=== PATIENT | male | born 1955 | race Caucasian/White ===

== ENCOUNTER 2017-10-07 22:59 | Inpatient (IN) | payer OTHER ==
[2017-10-08] MEDS ORDERED: Bisacodyl 10 MG SUPP PR PRN (02:11)
[2017-10-08] MEDS ORDERED: Dextrose 50% Abboject 50 ML SYRINGE SLOW IVP PRN (02:11)
[2017-10-08] MEDS ORDERED: Dextrose 5% in Water 1,000 ML IV SCH (02:11)
[2017-10-08] MEDS ORDERED: Ondansetron ODT 4 MG TAB PO PRN (02:11)
[2017-10-08] MEDS ORDERED: Sodium Chloride 0.9% 1,000 ML IV SCH (02:11)
[2017-10-08] MEDS ORDERED: Milk Of Magnesia 30 ML UDCUP PO PRN (02:11)
[2017-10-08] MEDS ORDERED: Fleet Enema 133 ML BOT PR PRN (02:11)
[2017-10-08] MEDS ORDERED: Insulin Regular 300 UNITS/3 ML VIAL SC PRN (02:11)
[2017-10-08] MEDS ORDERED: Ondansetron HCl/PF 4 MG/2 ML Vial IVP PRN (02:11)
[2017-10-08] MEDS: traMADol HCl 50 MG TAB PO PRN ×3 (03:13→19:57)
[2017-10-08 04:58] LABS: #Eosinphils 0.1 thou/uL (0.0-0.7); #Lymphocytes 1.3 thou/uL (1.20-3.40); #Monocytes 0.8 thou/uL (0.11-0.59); #Neutrophils 4.3 thou/uL (1.40-6.50); %Basophils 0.2 % (0.0-1.0); %Eosinophils 1.9 % (0.0-10.0); %Lymphocytes 19.7 % (21.0-51.0); %Monocytes 12.4 % (0.0-10.0); %Neutrophils 65.9 % (42.0-75.0); Hemoglobin 9.6 g/dL (14.0-18.0); Mean Corpuscular HGB CONC 31.1 g/dL (32.0-36.0); Mean Corpuscular Hemoglobin 26.8 pg (27.0-31.0); Mean Corpuscular Volume 86.4 fl (80.0-94.0); Mean Platelet Volume 9.4 fL (7.4-10.4); Platelet Count 138 thou/uL (130-400); RBC Distribution Width 15.6 % (11.5-14.5); Red Blood Cell (RBC) Count 3.59 mill/uL (4.70-6.10); White Blood Cell (WBC) Count 6.5 thou/uL (4.8-10.8)
[2017-10-08 05:01] LABS: Anion Gap 9 mmol/L (10-20); BUN (Urea Nitrogen) 28 mg/dL (8.4-25.7); Calc. Creatinine Clearance 225 mL/min (70-130); Calcium 8.5 mg/dL (7.8-10.44); Carbon Dioxide 32 mmol/L (23-31); Chloride 105 mmol/L (98-107); Estimated GFR-MDRD Greater than 90; Glucose 128 mg/dL (80-115); Magnesium 2.2 mg/dL (1.6-2.6); Phosphorus 3.6 mg/dL (2.3-4.7); Potassium 3.8 mmol/L (3.5-5.1); Sodium 142 mmol/L (136-145)
--- NOTE | 2017-10-08 07:51 | HP ---
Zach Melgoza PA-C, dictating for Dr. Slade Hagan. DATE OF SERVICE: 10/08/2017 CONSULTING PHYSICIAN: Dr. Solomon for Orthopedics. CHIEF COMPLAINT: Evaluation status post fall with subsequent hip fracture, transferred from [facility] ER. HISTORY OF PRESENT ILLNESS: This is a 62-year-old male who reported a fall while at work moving karime resses. He denied any LOC or striking his head or pain anywhere else other than localized into his k nee and hip. He was evaluated at a stand alone ER, which found he had a right hip fracture. He donavan ed any injury other than the right lower leg. Pulses were intact. No chest pain or shortness of kwabena ath was appreciated. PAST MEDICAL HISTORY: Included hypertension, congestive heart failure that was diagnosed in 2004, hy perlipidemia, diabetes, history of Mathew's palsy and diverticulitis. PAST SURGICAL HISTORY: Indicated for tonsillectomy. PAST PSYCHIATRIC HISTORY: He denies any psychiatric history. SOCIAL HISTORY: He is a former tobacco smoker, smoked greater than 10 years ago. Denies any alcohol use or denies any illicit drug use. He lives with his and he works at a [employer] store. REVIEW OF SYSTEMS: All 10 systems reviewed otherwise stated in HPI were negative. PHYSICAL EXAMINATION: VITAL SIGNS: Blood pressure 133/60, heart rate 78, respiratory rate of 18, temperature 98.9, 7/10 pa in, 96% on room air. GENERAL: In no acute distress at this time. He appears to be morbidly obese. HEENT: Atraumatic, normocephalic. No JVD, no masses. Trachea is midline. Pupils are equal, round, and reactive bilaterally. RESPIRATORY: Clear bilaterally via auscultation. CARDIOVASCULAR: S1, S2, regular rate and rhythm. ABDOMEN: Soft, nontender, nondistended, obese. BACK: Unremarkable. EXTREMITIES: Upper extremity, 5/5 strength, no tenderness or deformity. Lower extremity showed brui sing over the right knee, tenderness to that area as well as the right hip. Pulses are intact bilate rally DP and PT. NEUROLOGIC: GCS is 15. LABORATORY DATA: Laboratory findings are pending. RADIOLOGIC FINDINGS: Pending, otherwise stated in the stand [facility] ER report showing a right hip frac ture and right intertrochanteric fracture. ASSESSMENT: 1. Status post ground level fall. 2. Right hip fracture. 3. Acute traumatic pain. 4. History of hypertension. 5. History of diabetes. 6. History of congestive heart failure. PLAN: Plan will be to admit the patient to the surgical floor also has been already consulted. They advised the patient can eat. They will be obtaining further imaging studies tonight. We will discu ss for operative versus nonoperative management tomorrow in a.m. 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 We will consult Dr. Edwards for preoperative evaluation, and 2D echo has been ordered. We will optimize him medically for surger y, optimize his pain with p.o. and IV analgesics as necessary. Continuous KVO at this time. The pat ient may initiate a regular diet. We will initiate gastritis and DVT prophylaxis when appropriate. The patient has been discussed with Dr. Slade Hagan who agrees with the above plan.
--- NOTE | 2017-10-08 08:07 | CT ---
PRELIMINARY REPORT/[facility]/EMERGENCY AFTER HOURS PROCEDURE: EXAM: CT Pelvis Without Intravenous Contrast EXAM DATE/TIME: Exam ordered 10/08/2017 12:41 AM CLINICAL HISTORY: 62 years old, male; Injury or trauma; Fall; Initial encounter; Fracture of pelvis & hip; Right; Traum atic fracture; Acetabulum; Not specified; Patient HX: M62 reports fall with associated r hip FX. Pt r eports he was moving a mattress into client's vehicle when he tripped on the mattress and fell hard o nto r knee and reports "felt like leg jammed up into hip". Pt reports that he was able walk on leg bu t pain was great. Pt denies loc, neck pain, back pain, head pain, or pain anywhere else TECHNIQUE: Axial computed tomography images of the pelvis without intravenous contrast. Coronal and sagittal ref ormatted images were created and reviewed. COMPARISON: No relevant prior studies available. FINDINGS: Bones/joints: Acute comminuted fracture of the superior and posterior right acetabulum, mildly displa jian. No femur fracture. Severe osteoarthritis of the right hip. Less severe osteoarthritis of the lef t hip. No dislocation. Soft tissues: Incompletely visualized cellulitis of the lobe anterior abdominal wall pannus. Stomach and bowel: Colonic diverticulosis. No diverticulitis. No obstruction. Bladder: Unremarkable. No stones. Reproductive: Prostatomegaly. IMPRESSION: 1. Acute comminuted fracture of the superior and posterior right acetabulum, mildly displaced. 2. Incompletely visualized cellulitis of the lobe anterior abdominal wall pannus. Thank you for allowing us to participate in the care of your patient. Dictated and Authenticated by: John Ramos MD 10/08/2017 1:20 AM Central Time ([place] & [place]) FINAL REPORT CT PELVIS WITHOUT IV CONTRAST: Date: 10/08/17 FINDINGS/IMPRESSION: I agree with the preliminary report given by Dr. John Ramos of [facility]. POS: [facility]
--- NOTE | 2017-10-08 08:11 | RAD ---
AP PELVIS: Date: 10/08/17 HISTORY: Acetabular fracture. FINDINGS/IMPRESSION: There are severe degenerative changes in the hip joints, more prominent on the right. Right-sided eric tabular fracture is noted on the CT scan and not satisfactorily visualized on this study. POS: [facility]
--- NOTE | 2017-10-08 08:12 | RAD ---
RIGHT HIP 1 VIEW: Date: 10/08/17 HISTORY: Acetabular fracture. FINDINGS/IMPRESSION: The right acetabular fracture seen on the CT scan is less well visualized on this study. There are ma rked degenerative changes in the right hip joint. POS: [facility]
--- NOTE | 2017-10-08 08:18 | RAD ---
PORTABLE CHEST 1 VIEW: Date: 10/08/17 Time: 0603 hours HISTORY: Hip fracture, preoperative evaluation. FINDINGS: The heart size is normal. No confluent areas of consolidation, pneumothorax, or pleural effusions are seen. IMPRESSION: No acute process. POS: [facility]
[2017-10-08] MEDS: Docusate 100 MG CAP PO SCH ×2 (08:52→19:59)
--- NOTE | 2017-10-08 16:49 | PRG ---
DATE OF SERVICE: 10/08/2017 ATTENDING PHYSICIAN: Dr. Wai Manriquez. SUBJECTIVE: A 62-year-old male who had a ground level fall while at work moving a mattress last night. He was admitted to the hospital after a right hip fracture was identified. He has been stable on the surgical floor. Dr. Solomon, Orthopedics, has been consulted. OBJECTIVE: VITAL SIGNS: Temperature 98.0, pulse 72, respirations 24, O2 sat 95% on room air, blood pressure 165/74. GENERAL: Obese male lying in bed, in no acute distress. HEENT: Atraumatic, normocephalic. RESPIRATORY: Bilateral breath sounds clear. No respiratory distress. CARDIOVASCULAR: Regular rate and rhythm. Heart sounds normal. ABDOMEN: Obese, soft, nontender, nondistended. EXTREMITIES: Tenderness to the right hip and right upper leg. Extremities are otherwise neurovascularly intact. Cap refill brisk. NEUROLOGIC: GCS of 15. Alert and oriented x3. ASSESSMENT: 1. Status post ground level fall. 2. Right hip fracture. 3. Acute traumatic pain, improving. 4. History of hypertension, present on admission. 5. History of diabetes, present on admission. 6. History of congestive heart failure. PLAN: 1. Discussed at length with Dr. Solomon. This will be a delayed surgical repair of the hip. 2. Echo performed this morning. Dr. Edwards consulted. 3. Continue home medications. 4. Discontinue IV fluids. 5. Transition to p.o. pain medication, discontinue IV pain medication as tolerated. The patient was seen and examined with Dr. Carreno who agrees with this assessment and plan. [facility]
--- NOTE | 2017-10-08 19:30 | CON ---
DATE OF CONSULTATION: 10/08/2017 REASON FOR CONSULTATION: Preoperative evaluation. The patient's primary tax preparer Dr. Hunter Vogel. SUBJECTIVE: Mr. Adalid Maldonado is a very pleasant 62-year-old gentleman. He has history of nonisch emic cardiomyopathy, which fortunately later dramatically improved. The patient had an ejection fraction of 15-20% with normal coronary arteries in 2004. The patient la ter regained muscle function and the most recent ejection fraction was estimated to be approximately 50%. The patient has been doing well without complaints. He unfortunately did fall and then suffere d an injury to his hip and will need surgery at some point. PAST MEDICAL HISTORY: 1. Nonischemic cardiomyopathy, improved dramatically as outlined above. 2. Hypercholesterolemia. 3. Hypertension. 4. Previous smoking. 5. Bilateral edema likely venous insufficiency. The patient had reflux at the saphenous veins. MEDICATIONS PRIOR TO ADMISSION: Included, 1. Clonidine patch. 2. Aspirin. 3. Atorvastatin. 4. Benicar. 5. Coreg. 6 Furosemide. 7. Hydralazine 8. Metformin. 9. Terazosin. ALLERGIES: None known. SOCIAL HISTORY: No alcohol or tobacco. REVIEW OF SYSTEMS: Constitutional: No significant weight gain or loss. Vision: No changes. Heari ng: No changes. Pulmonary: No cough or wheezing. Gastrointestinal: No nausea, vomiting or diarrh ea. Skin: No rashes. Neurologic: No unilateral weakness or numbness. Psychiatric: No unusual de pression or anxiety. PHYSICAL EXAMINATION: GENERAL: This is a very pleasant gentleman in no distress. Feels well. VITAL SIGNS: Blood pressure 160/69, pulse 78 regular. HEENT: Sclerae nonicteric. Mouth mucous membranes moist. NECK: Supple, no lymphadenopathy. LUNGS: Clear, no wheezing, rales or rhonchi. CARDIAC: Normal S1, normal S2. There is no murmur, rub or gallop. ABDOMEN: Soft, nontender. EXTREMITIES: There is mild to moderate edema. Echocardiogram showed ejection fraction 50-55%. ASSESSMENT: 1. Nonischemic cardiomyopathy, resolved. 2. Hypertension. 3. Normal left ventricular function. PLAN: The patient should be a reasonable candidate to proceed with surgery when appropriate. Please let us know if we could be of any assistance. We will sign off at this point.
[2017-10-08] MEDS: hydrALAZINE 25 MG TAB PO SCH (19:58)
[2017-10-08] MEDS: Terazosin HCl 5 MG CAP PO SCH (19:58)
[2017-10-08] MEDS: Carvedilol 25 MG TAB PO SCH (19:59)
[2017-10-08] MEDS: Cyclobenzaprine 10 MG TAB PO PRN (20:06)
[2017-10-09] MEDS: Carvedilol 25 MG TAB PO SCH ×2 (08:45→22:34)
[2017-10-09] MEDS: metFORMIN 500 MG TAB PO SCH ×2 (08:45→17:05)
[2017-10-09] MEDS: hydrALAZINE 25 MG TAB PO SCH ×3 (08:46→22:33)
[2017-10-09] MEDS: Cyclobenzaprine 10 MG TAB PO PRN ×2 (08:46→17:05)
[2017-10-09] MEDS: Furosemide 40 MG TAB PO SCH (08:46)
[2017-10-09] MEDS: Docusate 100 MG CAP PO SCH ×2 (08:47→22:34)
[2017-10-09] MEDS: traMADol HCl 50 MG TAB PO PRN ×3 (08:47→22:33)
[2017-10-09] MEDS ORDERED: Aspirin 81 mg Enteric Coated Tablet PO SCH (09:00)
[2017-10-09] MEDS ORDERED: Enoxaparin Sodium 40 MG/0.4 ML SYRINGE SC SCH (09:00)
[2017-10-09] MEDS: Acetaminophen 500 MG TAB PO PRN (11:21)
--- NOTE | 2017-10-09 11:46 | PRG ---
DATE OF SERVICE: 10/09/2017 ATTENDING PHYSICIAN: Wai Manriquez DO SUBJECTIVE: Mr. Maldonado is a 62-year-old man who had a ground-level fall while at work moving a mattress 2 days ago. He was admitted to the hospital after right hip fracture was identified. He has been stable in the surgical floor. Dr. Solomon, Orthopedics, has recommended delayed operative treatment. An echocardiogram has been done and Dr. Edwards has been consulted. Per Dr. Edwards's note, the patient is a reasonable candidate to proceed with surgery when appropriate. Physical therapy has seen the patient this morning for mobilization. OBJECTIVE: VITAL SIGNS: Temperature 98.4, pulse 82, respirations 16, O2 sat 95% on room air, blood pressure is 178/74. CONSTITUTIONAL: Obese male sitting up in bed in no acute distress. HEENT: Atraumatic, normocephalic. RESPIRATORY: Bilateral breath sounds clear. No respiratory distress. CARDIOVASCULAR: Regular rate and rhythm. Heart sounds normal. ABDOMEN: Obese, soft, nontender, nondistended. EXTREMITIES: Tenderness to the right hip and right leg with movement. Extremities are otherwise neurovascularly intact. Cap refill is brisk. NEUROLOGIC: GCS 15. A and O x3. ASSESSMENT: 1. Status post ground-level fall. 2. Right hip fracture. 3. Acute traumatic pain, improving. 4. History of hypertension, present on admission. 5. History of diabetes, present on admission. 6. History of congestive heart failure. PLAN: 1. Plan for delayed operative treatment of hip fracture by Dr. Solomon. 2. Approved for surgery by Dr. Edwards. 3. Continue home medications. 4. Pain medication has been transitioned to oral medication only. 5. Await physical therapy recommendations for placement and/or outpatient therapy. The patient was reviewed with Dr. Manriquez who agreed with the assessment and plan. [facility]
--- NOTE | 2017-10-09 14:12 | CON ---
DATE OF CONSULTATION: 10/08/2017 REQUESTING PHYSICIAN: Dr. Slade Hagan. HISTORY OF PRESENT ILLNESS: Mr. Maldonado is a pleasant 62-year-old gentleman who was examined in his hospital bed for evaluation of a right hip injury. He reports that while at work, he was moving a m attress when he fell, landing on the point of his right knee, sustaining a compressive injury to the hip. He reports immediate right groin pain and difficulty in standing and inability to ambulate. Th ere was no loss of consciousness. He denies any other injuries except a small abrasion overlying the patella of the right knee. He was initially seen and evaluated at the [place] emergency room where plain x-rays were obtained fo llowed by a CT scan that showed a right posterior wall acetabular fracture with some extension into t he posterior column. I had the pleasure of speaking with the emergency room physician at [place] and we agreed in transferring patient to [facility] for orthopedic evaluation. Patient subsequently adm itted to the Trauma Service per protocol. PAST MEDICAL HISTORY: Remarkable for hypertension, congestive heart failure, hyperlipidemia, diabete s, history of Mathew's palsy. PAST SURGICAL HISTORY: Remarkable for tonsillectomy. SOCIAL HISTORY: The patient is a former cigarette smoker, although does not currently smoke. He den ies alcohol or illicit drug use. FAMILY HISTORY: Noncontributory. REVIEW OF SYSTEMS: Denies recent fevers, chills or sweats. Denies current chest pain or shortness o f breath. Denies numbness or tingling in the lower extremities. MEDICATIONS: Include carvedilol, clonidine, Lasix, hydralazine, metformin, medoxomil, terazosin, and aspirin 81 mg daily. ALLERGIES: None known. PHYSICAL EXAMINATION: VITAL SIGNS: Temperature 97.8, heart rate 79, respiratory rate 20, and blood pressure 138/71. HEENT: Atraumatic, normocephalic. HEART: Shows a regular rate and rhythm without murmur. LUNGS: Clear to auscultation bilaterally with good breath sounds. CHEST: Chest wall is nontender. PELVIS: Stable to compression, although with any manipulation of the right hip, he does feel pain in both lateral side of the hip as well as into the groin. EXTREMITIES: Bilateral upper extremities are atraumatic with normal subjective sensation. The left lower extremity is also atraumatic with normal sensation in the foot. The right lower extremity is r emarkable for pain with any type of log rolling and motion at the hip. He is found to have a femur t hat appears atraumatic and knee with just a small abrasion anteriorly, but no effusion and no evidenc e of laxity. Lower leg also is atraumatic as his knee, ankle and foot. He has intact subjective sen sation throughout the foot. X-RAYS: AP pelvis and Judet views were obtained in our emergency room that shows a posterior wall ac etabular fracture with mild displacement with no obvious complete fracture through the posterior colu mn. In addition to the acute fracture, he was found to have severe degenerative joint disease with b one on bone changes and osteophytes of both the acetabulum and femoral head. CT scan confirms the po sterior wall fracture with some extension towards the posterior column. LABORATORY DATA: White count of 6.5, hematocrit 31 and 138,000 platelets. ASSESSMENT: A 62-year-old gentleman status post ground level fall sustaining a posterior wall fractu re of his right acetabulum with preexisting severe degenerative joint disease of the hip. PLAN: At this time, the patient is admitted to the Trauma Service. I have discussed with patient tr eatment options for his hip. These options include but are not limited to benign neglect, with nonsu rgical management of the acetabulum. Another option is to proceed with nonsurgical management of the acetabulum followed by delayed total hip arthroplasty. Another option is to proceed with both open reduction internal fixation of the acetabulum and total hip arthroplasty. At this time, we are going to proceed with a nonsurgical management of the acetabular fracture and see how the patient does wit h physical therapy. If he tolerates therapy well, we will allow the fracture to heal conservatively and then anticipate proceeding with total hip arthroplasty. If the patient does not tolerate therapy at all, we may wish to consider doing an acute open reduction internal fixation with arthroplasty. Patient appears comfortable with our discussion and plan. We will be following gentleman while he is here in the hospital.
[2017-10-09] MEDS: Terazosin HCl 5 MG CAP PO SCH (22:33)
[2017-10-10] MEDS: hydrALAZINE 25 MG TAB PO SCH ×3 (08:12→21:15)
[2017-10-10] MEDS: Carvedilol 25 MG TAB PO SCH ×2 (08:12→21:20)
[2017-10-10] MEDS: metFORMIN 500 MG TAB PO SCH ×2 (08:12→17:07)
[2017-10-10] MEDS: Docusate 100 MG CAP PO SCH ×2 (08:12→21:23)
[2017-10-10] MEDS: Furosemide 40 MG TAB PO SCH (08:13)
[2017-10-10] MEDS ORDERED: CEFAZOLIN/Water 2 GM/20 ML SYRINGE SLOW IVP SCH (09:00)
[2017-10-10] MEDS: traMADol HCl 50 MG TAB PO PRN ×3 (11:11→23:09)
--- NOTE | 2017-10-10 11:35 | PRG ---
DATE OF SERVICE: 10/10/2017 ATTENDING PHYSICIAN: Wai Manriquez D.O. SUBJECTIVE: Mr. Maldonado is a 62-year-old man who had a ground level fall while at work moving mattr ess days ago. He was admitted to the hospital after right hip fracture was identified. He has been stable in the surgical floor. He has been seen by Dr. Edwards and cleared for surgery when appropriat e. Dr. Solomon was consulted and plans on taking the patient to the operating room tomorrow. Pain is well controlled on the floor and patient is tolerating regular diet. OBJECTIVE: VITAL SIGNS: Temperature 98.5, pulse 82, respirations 20, O2 sat 95% on room air, blood pressure 174 /72. CONSTITUTIONAL: Obese male sitting in bed in no acute distress. HEENT: Atraumatic, normocephalic. RESPIRATORY: Bilateral breath sounds clear. No respiratory distress. CARDIOVASCULAR: Regular rate and rhythm. Heart sounds normal. ABDOMEN: Soft, nontender, and nondistended. EXTREMITIES: Tenderness to right hip with movement. Neurovascularly intact. Cap refill brisk. NEUROLOGIC: GCS 15. A and O x3. ASSESSMENT: 1. Status post ground level fall. 2. Right hip fracture. 3. Acute traumatic pain, well controlled. 4. History of hypertension present on admission. 5. History of diabetes present on admission. 6. History of congestive heart failure. PLAN: 1. Patient will go to OR tomorrow with Dr. Solomon for right hip fracture repair. 2. N.p.o. after midnight, begin IV fluids and IV analgesia. 3. Continue home medications. 4. BP slightly elevated this morning. We will monitor and treat as appropriate. 5. Physical and occupational therapy after OR with orthopedic restrictions. 6. DVT prophylaxis after OR when cleared by Orthopedic Surgery. The patient was seen and examined with Dr. Manriquez who agrees with the assessment and plan.
[2017-10-10] MEDS: Terazosin HCl 5 MG CAP PO SCH (21:20)
--- NOTE | 2017-10-10 21:42 | RAD ---
RIGHT KNEE OUR VIEWS: History: Right knee injury. FINDINGS: There is mild tricompartmental joint space narrowing and moderate osteophytosis. Small amount of flui d extends the suprapatellar bursa. Soft tissue over the patella is significantly swollen. No acute fr acture, dislocation, or aggressive osseous erosions. There is irregularity of the cortex involving th e posterior proximal fibular shaft. IMPRESSION: 1. Prominent prepatellar soft tissue swelling. Cause is not evident. 2. Osteoarthritis with small joint effusion. 3. Cortical irregularity involving the posterior aspect of the proximal fibular shaft. Please conside r dedicated radiograph of the lower leg for complete evaluation of the fibula. MRI of the lower leg m ay also prove useful for better characterization. POS: [facility]
--- NOTE | 2017-10-10 21:44 | RAD ---
AP PELVIS ONE VIEW: History: Pelvic pain. FINDINGS: Sacral ala and pelvic rings are intact. There are prominent degenerative changes of each hip, right g reater than left. Cortical remottling of the right femoral head and neck is present in addition to lo ss of joint space and prominent osteophytosis and subchondral sclerosis. IMPRESSION: Prominent degenerative changes of the hips. POS: [facility]
[2017-10-10] MEDS: Cyclobenzaprine 10 MG TAB PO PRN (23:08)
--- NOTE | 2017-10-11 01:14 | PRG ---
DATE OF SERVICE: 10/10/2017 SUBJECTIVE: This is a 62-year-old gentleman status post mechanical fall. He was evaluated and found to have a right acetabular fracture. There are plans for operative intervention in the morning with Orthopedic Surgery. Upon my evaluation, the patient states he was working with physical therapy yest erday and earlier today and developed increasing pain in his right lower extremity. In particular, ileana michaels developed increasing pain above and below the right knee. OBJECTIVE: VITAL SIGNS: Reviewed and stable. GENERAL: The patient is resting in bed in no acute distress. LUNGS: Breathing is nonlabored. EXTREMITIES: Right knee is swollen and tender to palpation with limited range of motion secondary to pain. There is an abrasion with some scattered ecchymosis noted. ASSESSMENT AND PLAN: As documented in the daily progress note. Patient should be n.p.o. after midni ght. We will hold patient's home metformin given his n.p.o. status. X-ray of the right knee and re- x-ray of the pelvis per orthopedic surgery recommendations. Otherwise, continue care as order and co ntinued to monitor. To OR in a.m. with ortho.
[2017-10-11 05:05] LABS: Anion Gap 11 mmol/L (10-20); BUN (Urea Nitrogen) 21 mg/dL (8.4-25.7); Calc. Creatinine Clearance 255 mL/min (70-130); Calcium 8.9 mg/dL (7.8-10.44); Carbon Dioxide 30 mmol/L (23-31); Chloride 99 mmol/L (98-107); Estimated GFR-MDRD Greater than 90; Glucose 125 mg/dL (80-115); Magnesium 1.9 mg/dL (1.6-2.6); Phosphorus 3.4 mg/dL (2.3-4.7); Sodium 136 mmol/L (136-145)
[2017-10-11 05:28] LABS: Band 1 % (5-11); Eosinophils 2 % (0-10); Hemoglobin 10.4 g/dL (14.0-18.0); Lymphocytes 26 % (21-51); MDiff Complete? YES; Mean Corpuscular HGB CONC 31.1 g/dL (32.0-36.0); Mean Corpuscular Hemoglobin 26.7 pg (27.0-31.0); Mean Corpuscular Volume 85.8 fl (80.0-94.0); Monocytes 7 % (0-10); Neutrophil 64 % (42-75); PLT Morphology Comment Appears Adequate; Platelet Count 172 thou/uL (130-400); RBC Distribution Width 16.2 % (11.5-14.5); Red Blood Cell (RBC) Count 3.91 mill/uL (4.70-6.10); White Blood Cell (WBC) Count 7.8 thou/uL (4.8-10.8)
[2017-10-11] MEDS: Carvedilol 25 MG TAB PO SCH ×2 (06:19→20:28)
[2017-10-11] MEDS: Sodium Chloride 0.9% 1,000 ML IV SCH ×3 (07:38→18:44)
--- NOTE | 2017-10-11 08:29 | RAD ---
TWO VIEWS RIGHT TIBIA FIBULA: History: Status post fall. FINDINGS: AP and lateral views demonstrate some chronic periosteal changes in the proximal portion of the right fibula. Further workup using MRI may be consideration. The rest of the right tibia and fibula are un remarkable. No acute fractures or bony lesions seen. IMPRESSION: Proximal right fibular periosteal changes. POS: [facility]
[2017-10-11] MEDS ORDERED: CEFAZOLIN/Water 2 GM/20 ML SYRINGE ONE (08:54)
[2017-10-11] MEDS ORDERED: Fentanyl 100 MCG/2 ML VIAL ONE ×6 (09:10→14:31)
[2017-10-11] MEDS ORDERED: Midazolam HCl 2 mg/2 ml Vial ONE (09:36)
[2017-10-11] MEDS ORDERED: Rocuronium Bromide 50 MG/5 ML VIAL ONE ×2 (09:44→11:04)
[2017-10-11] MEDS: Docusate 100 MG CAP PO SCH ×2 (12:15→20:28)
[2017-10-11] MEDS: hydrALAZINE 25 MG TAB PO SCH ×3 (12:15→20:26)
[2017-10-11] MEDS: Furosemide 40 MG TAB PO SCH (12:15)
[2017-10-11] MEDS ORDERED: CEFAZOLIN/Water 2 GM/20 ML SYRINGE SLOW IVP SCH (13:30)
[2017-10-11] MEDS ORDERED: HYDROmorphone 0.5 MG/0.5 ML SYRINGE ONE ×2 (13:39→13:40)
[2017-10-11] MEDS ORDERED: Lidocaine 1% PF 5 ML VIAL ONE (15:51)
[2017-10-11] MEDS ORDERED: Succinylcholine Chloride 20 MG/ML 10 ml SYRINGE FS ONE (15:51)
[2017-10-11] MEDS ORDERED: Ondansetron HCl/PF 4 MG/2 ML Vial ONE (15:51)
[2017-10-11] MEDS ORDERED: Ketorolac Tromethamine 30 MG/ML VIAL ONE (15:51)
[2017-10-11] MEDS ORDERED: Propofol 200 MG/20 ML VIAL ONE (15:51)
[2017-10-11] MEDS ORDERED: PHENYLEPHRINE-NS 100 MCG/ML 10 ML SYRINGE ONE (15:51)
--- NOTE | 2017-10-11 16:02 | RAD ---
AP PELVIS: Two fluoroscopic views of the pelvis presented from the OR. Indication: Imaging during open reduction internal fixation of the pelvis. FINDINGS: These films demonstrate metallic plate and screws transfixing acetabulum. The side is not specified. POS: [facility]
--- NOTE | 2017-10-11 16:37 | RAD ---
AP PELVIS: History: Hip replacement. FINDINGS/IMPRESSION: Comparison is made with exam of 10-10-17. Interval post op changes of total right hip arthroplasty is seen in good position. There are post op changes of reduction and internal fixation of the right acetabular fracture better noted on the CT pe lvis of 10-08-17. There are degenerative changes in the left hip joint. POS: [facility]
--- NOTE | 2017-10-11 16:42 | RAD ---
PORTABLE CROSS TABLE LATERAL VIEW RIGHT HIP: Date: 10-11-17 History: Post-operative. FINDINGS: Compared to study 10-08-17. There has been interval post-surgical changes with right total hip prosthe sis noted in place. The acetabular component is not well seen. There is a malleable plate overlying t he region of the acetabulum, also incompletely imaged. Skin clips are seen lateral to the hip. IMPRESSION: Post-surgical changes related to recent placement of right total hip prosthesis. POS: [facility]
[2017-10-11] MEDS: CEFAZOLIN/Water 2 GM/20 ML SYRINGE SLOW IVP SCH (19:26)
[2017-10-11] MEDS: Ibuprofen 800 MG TAB PO SCH (19:26)
[2017-10-11] MEDS: Terazosin HCl 5 MG CAP PO SCH (20:27)
[2017-10-11] MEDS: Famotidine 20 MG TAB PO SCH (20:28)
--- NOTE | 2017-10-11 22:23 | PRG ---
DATE OF SERVICE: 10/11/2017 ATTENDING PHYSICIAN: Wai Manriquez D.O. 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 He was scheduled to be taken to the OR to day for open reduction internal fixation of his hip after initially opting for conservative managemen t. The patient was seen this afternoon postop as he was not on the floor during rounds this morning. He appears groggy, but is conversational and appropriately oriented. He voices pain in his right k nee, which he says is 7/10. Otherwise, he has no complaints. OBJECTIVE: VITAL SIGNS: BP 171/72, pulse 78, temperature 98.5, respirations 18, O2 sat 95% on room air. Note, these vital signs were collected at 4:00 a.m. Remainder of the examination was completed in the afte rnoon after the patient was postop. GENERAL: Obese, adult, middle-aged male, lying in bed, in no acute distress. HEENT: Normocephalic and atraumatic. RESPIRATORY: Breath sounds are clear to auscultation bilaterally with normal effort. The patient is on 2 L nasal cannula. CARDIOVASCULAR: Regular rate and rhythm. Normal S1 and S2. ABDOMEN: Soft, obese, but nontender. His bowel sounds are hypoactive. EXTREMITIES: His distal pulses are 1+ in the left lower extremity. Distal pulses not able to be johann reciated in the right lower extremity. He has significant pitting edema 2+ above the knee on his rig ht lower extremity. SCD compression is in place on the left lower extremity. No edema is present. His left lower extremity is warm to the touch. Cap refill was not able to be appreciated given nail thickening and discoloration. On his right lower extremity, his skin is significantly cooler to the touch. Again, cap refill not able to be appreciated given yellow thickened nails. SKIN: There is no cyanosis observed. His sensation is intact bilaterally in his lower extremities. NEUROLOGIC: His GCS is 15. He is alert and oriented x3. He has no focal deficits. LABORATORY DATA: Hematology: WBC 7.8, hemoglobin 10.4, hematocrit 33.6, platelets 172. Chemistry: Sodium 136, potassium 4.0, chloride 99, bicarbonate 30, BUN 21, creatinine 0.69, glucose 125, calciu m 8.9, phosphorus . RADIOGRAPHIC FINDINGS: A right hip x-ray, postsurgical changes related to recent placement of right total hip prosthesis. Pelvis x-ray: Interval postop changes to total right hip arthroplasty seen in good position. There are postop changes open reduction internal fixation of the right acetabular fr acture, better noted on the CT pelvis of 10/08/2017. There are degenerative changes in the left hip joint. Right knee x-ray from 10/10/2017, 1. Prominent prepatellar soft tissue swelling. Cause is not evident. 2. Osteoarthritis of small joint effusion. 3. Cortical irregularity involving the posterior aspect of the proximal fibular shaft. Please consi roni dedicated radiograph of the lower leg for complete evaluation of the fibula. MRI of the lower le g may also prove useful for better characterization. ASSESSMENT: 1. Status post ground level fall. 2. Right hip fracture. 3. Acute traumatic pain. 4. Right knee pain and swelling. 5. History of hypertension, present on admission. 6. History of diabetes, present on admission. 7. History of congestive heart failure, present on admission. PLAN: 1. We will continue to try and optimize the patient's pain control. Currently, the patient receivin g morphine, tramadol, and Tylenol. We will add ibuprofen 800 q.8 scheduled to see if this helps. 2. Right lower extremity ultrasound to rule out deep venous thrombosis. 3. PT and OT. Now, the patient is postop. Rehab consult as well. The patient was seen and examined with Dr. Wai Manriquez, who agrees with the assessment and plan.
[2017-10-11] MEDS: traMADol HCl 50 MG TAB PO PRN (23:57)
[2017-10-12] MEDS: CEFAZOLIN/Water 2 GM/20 ML SYRINGE SLOW IVP SCH (02:59)
[2017-10-12] MEDS: Ibuprofen 800 MG TAB PO SCH ×3 (03:01→20:28)
[2017-10-12] MEDS: Sodium Chloride 0.9% 1,000 ML IV SCH (03:01)
[2017-10-12] MEDS: traMADol HCl 50 MG TAB PO PRN ×2 (06:15→12:04)
--- NOTE | 2017-10-12 07:20 | OP ---
DATE OF SURGERY: 10/11/2017 PREOPERATIVE DIAGNOSIS: Right posterior column with associated posterior wall acetabular fracture wi th severe preexisting osteoarthritis of right hip. POSTOPERATIVE DIAGNOSIS: Right posterior column with associated posterior wall acetabular fracture w ith severe preexisting osteoarthritis of right hip. SURGICAL PROCEDURES: 1. Open reduction and internal fixation of right acetabulum posterior column. 2. Right total hip arthroplasty. ANESTHESIA: General. SURGEON: Darshan Solomon M.D. CHILD & ADOLESCENT PSYCHIATRIST: Perez Chavira M.D. and Raulito Shelton PA-C BLOOD LOSS: Approximately 250 mL. IMPLANTS: 1. Synthes 10-hole pelvis reconstruction plate with 3.5 mm cortical screws. 2. A DePuy total hip arthroplasty with a size 4 Arcade stem with high offset neck, a size 58 Pinnacl e cup and a +5 femoral head. COMPLICATIONS: None. DRAINS: None. SPECIMEN: None. INDICATIONS: Patient is a 62-year-old morbidly obese gentleman who sustained a ground level fall ont o his right knee with subsequent posterior column and posterior wall acetabular fracture. This fract ure was found to be mildly displaced at the posterior wall with essentially nondisplaced column fract ure line that was incomplete and this is based on CT scan preoperatively. After discussion with viv ent regarding surgical options, we have decided to proceed with acute open reduction and internal fix ation of the acetabular fracture followed by total hip arthroplasty given the severity of his preinju ry osteoarthritis. I have discussed with patient the risks and benefits of surgery. Risks include b ut are not limited to bleeding, infection, nerve injury, hip dislocation, infection, DVT, PE, loss of limb or life. Patient appears to understand and does wish to proceed. Consent has been obtained. PROCEDURE IN DETAIL: The patient was brought to the operating room and timeout performed followed by induction of general anesthesia. The patient was then positioned in a left lateral decubitus positi on on the Riky frame. Next, a sterile prep and drape was performed of the right lower extremity. A curvilinear incision was made centered over the greater trochanter. After the skin was sharply in cised, dissection was carried down through the subcutaneous fat, exposing the IT band and the gluteal fascia. This was incised in line with the skin incision and then a Charnley retractor placed in the wound. The trochanteric bursa was swept off of the short external rotators and then the abductors w ere elevated off the posterior capsule with an elevator. At this point, the piriformis, gemelli and bullet slug casting machine operator tendon could be identified. The piriformis was released from its attachment on the greater trochanter and tagged and reflected posteriorly. The gemelli and obturator were also released and ta gged and reflected posteriorly. The quadratus from [place] also released as was the most superior por tion of the gluteus jordi tendon. Once these structures were released and reflected posteriorly, lan lantigua sciatic nerve was palpated and felt to be protected. The dissection was then carried along the po sterior capsule onto the posterior wall with fracture identified. Subperiosteal dissection was then carried further proximally up along the ilium. The sciatic notch could be palpated and a sciatic ret ractor was placed in the notch with gentle posterior retraction. The dissection was then carried fur ther posteriorly to identify the ischium. At this point, it was opted to proceed with hip dislocatio n. This was done and the process further displaced the fracture as well as expected. An oscillating saw was then used to perform a femoral neck cut. The head was removed and sized on the back table. Next, attention was again placed back at the acetabular fracture. The posterior wall fragment was f urther displaced and a hematoma from the fracture gap was removed along with some interposed soft tis xin. The fracture was then reduced and could be confirmed both from the intra-articular view as well as the posterior view to be anatomically aligned. This was then provisionally held in place with K- wires. Next, a 10-hole pelvic reconstruction plate was contoured to fit from the issue flare up andre g the posterior column and posterior wall and up to the upper ileum. Once contoured it was held in p lace initially with 2 screws distally in the ischium and then the plate which was under contoured was pushed down against the ilium and held in place with three screws getting excellent compression andre g the posterior wall and securing the posterior column. At the completion of this, attention was the n placed at the total hip replacement portion of the procedure. Osteophytes from around the rim of lan lantigua acetabulum were excised using a combination of osteotome and rongeur and then reaming was performe d. Reaming was carried up to a size 57, which resulted in good rim fit, but still very sclerotic bon e; however, it was felt that the cup had been medialized adequately and as such, it was decided to st op further reaming at this size. Next, the 58 Silverthorne cup was inserted, taking care to be aware of both version and tilt. Once appropriately aligned and this was found to have very secure pressfit wi th no displacement of the acetabular fracture during the process of placing the cup. Given the poste rior wall component of this fracture, we did choose to place two screws through the cuff and this was done in standard fashion getting very secure purchase with these screws. Next, a 10 degree offset l iner was inserted into the cup. At this point, attention was placed at the proximal femur. He is fo und to have some posterior osteophytes along the neck from his severe arthritis. These were excised and then a box chisel was used to obtain a starting point for access in the intramedullary canal. A T-handled awl was then passed down the canal followed by a lateralizing reamer. Progressive T handle de were then passed; however, somewhere between a size 4 and 5, no further progress was made with T handle de as such, broaching was started at size 2 and could only be brought up to a size 4 bef ore there was complete fit and fill of the proximal femur. A trial reduction was then performed and showed good yazidism of length and good stability of the hip. The trial femoral component was the n removed and the wound thoroughly irrigated with Pulsavac, a total of three liters was used during t he course of the procedure. Next, the size 4 Silverthorne stem was inserted into the proximal femur. Th is was followed by insertion of a +5 femoral head and then reduction of the hip in the 90/90 position . The hip could be brought into internal rotation nearly 75 degrees before subluxation was appreciat ed. The hip overall was felt to be extremely stable and leg lengths were felt to be reasonably frederick red. As such, wound again irrigated with normal saline and then wound closure performed. The gemell i and obturator sleeve was reattached to the posterior trochanter using #2 Vicryl. This was followed by reattachment of the piriformis. There really was not a capsule to reapproximate in this case. T his was followed by reapproximation of the IT band and gluteal fascia using #2 Vicryl, 0 Vicryl was u sed for Rell's fascia followed by 2-0 Vicryl and roosevelt for the skin. A Xeroform gauze and tape d ressing was applied to the thigh and then patient was transferred to recovery room in stable [facility], [place]. There were no complications. Patient tolerated the procedure well.
--- NOTE | 2017-10-12 07:28 | EKG ---
Test Reason : PREOP Blood Pressure : / mmHG Vent. Rate : 074 BPM Atrial Rate : 074 BPM P-R Int : 188 ms QRS Dur : 168 ms QT Int : 458 ms P-R-T Axes : 051 -56 091 degrees QTc Int : 508 ms Normal sinus rhythm Left axis deviation Left ventricular hypertrophy with QRS widening and repolarization abnormality Abnormal ECG When compared with ECG of 06-FEB-2016 19:27, (Unconfirmed) (RBBB and left anterior fascicular block) is no longer Present Minimal criteria for Septal infarct are no longer Present Confirmed by DR. Deepti CHI ([id number]) on 10/12/2017 7:27:27 AM Referred By: GABRIELLA Confirmed By:DR. Deepti CHI
[2017-10-12 07:37] LABS: Mean Corpuscular HGB CONC 31.7 g/dL (32.0-36.0); Mean Corpuscular Hemoglobin 26.9 pg (27.0-31.0); Mean Corpuscular Volume 84.8 fl (80.0-94.0); Mean Platelet Volume 8.8 fL (7.4-10.4); Platelet Count 186 thou/uL (130-400); RBC Distribution Width 16.4 % (11.5-14.5); Red Blood Cell (RBC) Count 3.35 mill/uL (4.70-6.10); White Blood Cell (WBC) Count 10.9 thou/uL (4.8-10.8)
[2017-10-12 08:34] LABS: Band 21 % (5-11); Eosinophils 2 % (0-10); Lymphocytes 9 % (21-51); MDiff Complete? YES; Monocytes 10 % (0-10); Neutrophil 58 % (42-75); Ovalocytes MODERATE= 6-15 cells (100X) (0-1/hpf); Polychromasia SLIGHT = 2-3 cells (100X) (0-2/hpf)
[2017-10-12] MEDS: Cyclobenzaprine 10 MG TAB PO PRN (09:03)
[2017-10-12] MEDS: Famotidine 20 MG TAB PO SCH ×2 (09:03→20:29)
[2017-10-12] MEDS: Acetaminophen 500 MG TAB PO PRN (09:03)
[2017-10-12] MEDS: Docusate 100 MG CAP PO SCH ×2 (09:03→20:29)
[2017-10-12] MEDS: Furosemide 40 MG TAB PO SCH (09:03)
[2017-10-12] MEDS: Polyethylene Glycol 3350 17 GM Packet PO SCH (09:04)
[2017-10-12] MEDS ORDERED: Tamsulosin HCl 0.4 MG CAP PO SCH (10:15)
[2017-10-12] MEDS ORDERED: traMADol HCl 50 MG TAB PO SCH (12:00)
[2017-10-12] MEDS: Carvedilol 25 MG TAB PO SCH ×2 (13:14→20:29)
[2017-10-12] MEDS: hydrALAZINE 25 MG TAB PO SCH ×3 (13:15→20:30)
[2017-10-12] MEDS: Acetaminophen 500 MG TAB PO SCH ×2 (15:42→20:29)
--- NOTE | 2017-10-12 16:12 | PRG ---
DATE OF SERVICE: 10/12/2017 ATTENDING PHYSICIAN: Wai Manriquez D.O. SUBJECTIVE: The patient is a 62-year-old male with a right hip fracture who is now postop day #2. H xenia reports this morning that the pain in his knee which he had been complaining of significantly yeste rday has improved. He has had urinary retention requiring I&O catheterization overnight. The patien t takes terazosin at home for this. OBJECTIVE: VITAL SIGNS: BP 103/61, pulse 81, temperature 99.1, respirations 14, O2 sat 82% on room air. GENERAL APPEARANCE: Obese adult middle-aged male lying in bed in no acute distress. He has nasal ca nnula in place. HEENT: Normocephalic and atraumatic. RESPIRATORY: His breath sounds are clear to auscultation bilaterally with normal effort. The patien t is on 2 liters oxygen. CARDIOVASCULAR: He has regular rate and rhythm. No murmurs, gallops or rubs. ABDOMEN: Soft, obese, but nontender. His bowel sounds are normal. EXTREMITIES: He has 1+ distal pulses bilaterally in his lower extremities. A 2+ pitting edema to th e knee in the right lower extremity. NEUROLOGIC: His GCS is 15. He is alert and oriented x3. He has no focal deficits. LABORATORY DATA: Hematology: WBC 10.9, hemoglobin 9.0, hematocrit 28.4, platelets 186. Chemistry: Sodium 136, potassium 4.0, chloride 99, bicarbonate 30, BUN 21, creatinine 0.69, glucose 125, calciu m 8.9, phosphorus 3.4, and magnesium 1.9. There are no radiographs reviewed today. ASSESSMENT: 1. Status post fall ground level fall. 2. Right hip fracture. 3. Acute traumatic pain. 4. Right knee pain and swelling. 5. History of hypertension, present on admission. 6. History of diabetes, present on admission. 7. History of congestive heart failure, present on admission. PLAN: 1. We will reduce patient's tramadol to 50 p.r.n. and schedule ibuprofen and Tylenol in order to ach ieve adequate pain control with minimal cognitive disruption. 2. Patient to continue PT and OT. 3. We will place Enriquez catheter for urinary retention and add Flomax to his medications. This patient was seen and examined along with Dr. Wai Manriquez on rounds, who agree with the assessm ent and plan.
[2017-10-12] MEDS: Enoxaparin Sodium 40 MG/0.4 ML SYRINGE SC SCH (20:29)
[2017-10-12] MEDS: Terazosin HCl 5 MG CAP PO SCH (20:30)
[2017-10-13] MEDS: Acetaminophen 500 MG TAB PO SCH ×4 (03:59→20:39)
[2017-10-13] MEDS: Ibuprofen 800 MG TAB PO SCH ×3 (03:59→20:39)
[2017-10-13 05:55] LABS: Band 4 % (5-11); Eosinophils 3 % (0-10); Hemoglobin 8.9 g/dL (14.0-18.0); Lymphocytes 10 % (21-51); MDiff Complete? YES; Mean Corpuscular HGB CONC 30.8 g/dL (32.0-36.0); Mean Corpuscular Hemoglobin 26.9 pg (27.0-31.0); Mean Corpuscular Volume 87.4 fl (80.0-94.0); Mean Platelet Volume 9.4 fL (7.4-10.4); Monocytes 15 % (0-10); Neutrophil 68 % (42-75); Platelet Count 170 thou/uL (130-400); RBC Distribution Width 16.1 % (11.5-14.5); White Blood Cell (WBC) Count 9.3 thou/uL (4.8-10.8)
[2017-10-13] MEDS ORDERED: Bisacodyl 10 MG SUPP PR SCH (07:00)
[2017-10-13] MEDS: Docusate 100 MG CAP PO SCH ×2 (08:45→20:39)
[2017-10-13] MEDS: Polyethylene Glycol 3350 17 GM Packet PO SCH (08:45)
[2017-10-13] MEDS ORDERED: Hydrocortisone Sod Succ/PF 100 mg/2 ml Vial IVP SCH ×2 (08:45→09:00)
[2017-10-13] MEDS: Bisacodyl 10 MG SUPP PR SCH (08:46)
[2017-10-13] MEDS: Furosemide 40 MG TAB PO SCH (08:46)
[2017-10-13] MEDS: Tamsulosin HCl 0.4 MG CAP PO SCH (08:46)
[2017-10-13] MEDS: Famotidine 20 MG TAB PO SCH ×2 (08:46→20:39)
[2017-10-13] MEDS: traMADol HCl 50 MG TAB PO PRN ×2 (08:53→15:39)
[2017-10-13] MEDS: hydrALAZINE 25 MG TAB PO SCH ×3 (08:53→20:40)
[2017-10-13] MEDS: Carvedilol 25 MG TAB PO SCH ×2 (08:53→20:40)
[2017-10-13] MEDS: Cyclobenzaprine 10 MG TAB PO PRN (08:54)
[2017-10-13] MEDS: Hydrocortisone Sod Succ/PF 100 mg/2 ml Vial IVP SCH ×2 (14:27→21:40)
--- NOTE | 2017-10-13 15:42 | PRG ---
DATE OF SERVICE: 10/13/2017 ATTENDING PHYSICIAN: Dr. Wai Manriquez. SUBJECTIVE: The patient is a 62-year-old male with a right hip fracture, who is now postop day #3, s tatus post open reduction internal fixation. He has been requiring less oxygen overnight. He has a Enriquez in place for urinary retention. Patient was started on Flomax yesterday for this and he takes terazosin at home for this as well. The patient voices no complaints upon exam this morning. OBJECTIVE: VITAL SIGNS: BP 102/70, pulse 76, temperature 98.0, respirations 16, O2 sat 97% on room air. GENERAL APPEARANCE: Patient is an obese adult middle-aged male who appears his stated age, lying in bed with no acute distress. HEENT: Normocephalic and atraumatic. RESPIRATORY: His breath sounds are clear to auscultation bilaterally with normal effort. CARDIOVASCULAR: He has regular rate and rhythm. Normal S1 and S2. ABDOMEN: Soft, obese, and nontender. He has normal bowel sounds. EXTREMITIES: 1+ pulses bilaterally in lower extremities. 2+ pitting edema to the knee in the right lower extremity. NEUROLOGIC: His GCS is 15. This morning, he is alert and oriented x3 without focal deficits. LABORATORY DATA: WBC is 9.3, hemoglobin 8.9, hematocrit 28.8, platelets 170. Chemistry, serum corti jhonny 12.20. RADIOGRAPHIC FINDINGS: There were no radiographs reviewed today. ASSESSMENT: 1. Status post ground level fall. 2. Right hip fracture. 3. Acute traumatic pain. 4. Right knee pain and swelling. 5. History of hypertension, present on admission. 6. History of diabetes, present admission. 7. History of congestive heart failure, present on admission. PLAN: 1. Patient reports adequate pain control currently. We will continue pain control as ordered. 2. Patient to continue PT and OT. Rehab screen has been placed and since patient has a worker's com pensation, we are waiting on approval from worker's compensation. 3. Patient had 2 episodes of hypotension overnight, now with blood pressures in the 90s/50s. Serum cortisol was drawn, which was revealed to be 12.2. He was given 100 grams of hydrocortisone and star susan on 25 mg hydrocortisone q.8 hours. His blood pressure since normalized. This is likely due to s ome amount of adrenal insufficiency with a post-surgical stress. 4. Patient has Enriquez catheter x1 day. Flomax has been added to help improve urinary flow. We will likely discontinue Enriquez tomorrow. This patient was seen and examined along with Dr. Wai Manriquez on rounds and agrees with the assessm ent and plan.
[2017-10-13] MEDS: Enoxaparin Sodium 40 MG/0.4 ML SYRINGE SC SCH (20:40)
[2017-10-13] MEDS: Terazosin HCl 5 MG CAP PO SCH (20:40)
[2017-10-14] MEDS: Ibuprofen 800 MG TAB PO SCH ×3 (03:06→20:35)
[2017-10-14] MEDS: Acetaminophen 500 MG TAB PO SCH ×4 (03:06→20:35)
[2017-10-14] MEDS: Hydrocortisone Sod Succ/PF 100 mg/2 ml Vial IVP SCH ×3 (05:55→22:41)
[2017-10-14 07:01] LABS: Band 14 % (5-11); Eosinophils 2 % (0-10); Hemoglobin 8.1 g/dL (14.0-18.0); Lymphocytes 8 % (21-51); MDiff Complete? YES; Mean Corpuscular HGB CONC 30.6 g/dL (32.0-36.0); Mean Corpuscular Hemoglobin 26.2 pg (27.0-31.0); Mean Corpuscular Volume 85.6 fl (80.0-94.0); Mean Platelet Volume 9.3 fL (7.4-10.4); Monocytes 12 % (0-10); Neutrophil 61 % (42-75); Platelet Count 194 thou/uL (130-400); RBC Distribution Width 15.9 % (11.5-14.5); Red Blood Cell (RBC) Count 3.09 mill/uL (4.70-6.10); White Blood Cell (WBC) Count 10.3 thou/uL (4.8-10.8)
[2017-10-14] MEDS: Polyethylene Glycol 3350 17 GM Packet PO SCH (08:18)
[2017-10-14] MEDS: Furosemide 40 MG TAB PO SCH (08:19)
[2017-10-14] MEDS: Bisacodyl 10 MG SUPP PR SCH (08:19)
[2017-10-14] MEDS: Carvedilol 25 MG TAB PO SCH ×2 (08:20→20:38)
[2017-10-14] MEDS: Cyclobenzaprine 10 MG TAB PO PRN ×2 (08:20→22:51)
[2017-10-14] MEDS: Tamsulosin HCl 0.4 MG CAP PO SCH (08:20)
[2017-10-14] MEDS: Famotidine 20 MG TAB PO SCH ×2 (08:20→20:37)
[2017-10-14] MEDS: hydrALAZINE 25 MG TAB PO SCH ×3 (08:20→20:36)
[2017-10-14] MEDS: traMADol HCl 50 MG TAB PO PRN ×3 (08:21→22:44)
[2017-10-14] MEDS: Docusate 100 MG CAP PO SCH ×2 (08:21→20:37)
[2017-10-14] MEDS ORDERED: Sodium Chloride 0.9% 500 ML IV SCH (15:00)
--- NOTE | 2017-10-14 16:57 | PRG ---
DATE OF SERVICE: 10/14/2017 ATTENDING PHYSICIAN: Dr. Wai Manriquez. SUBJECTIVE: The patient is a 62-year-old man with a right hip fracture, is now postop day #4 status post open reduction internal fixation. He has been weaned off oxygen this morning as well as his Fol ey catheter has been removed. The patient reports that his pain is well controlled this morning and voices no other complaints. OBJECTIVE: VITAL SIGNS: Blood pressure 121/56, pulse 72, temperature 98.0, respirations 18. GENERAL: The patient is an obese adult male, appears stated age, in no acute distress. HEENT: Normocephalic and atraumatic. RESPIRATORY: Breath sounds are clear to auscultation bilaterally with normal effort. CARDIOVASCULAR: He has a regular rate and rhythm. Normal S1 and S2. ABDOMEN: Soft, obese, nontender. He has normal bowel sounds. EXTREMITIES: He has 1+ pulses bilaterally lower extremities. 2+ pitting edema to the knee in the ri ght lower extremity. Very minimal edema in his left lower extremity. NEUROLOGIC: GCS is 15 this morning. He is alert and oriented x3 without focal deficits. LABORATORY DATA: Hematology: WBC is 10.3, hemoglobin 8.1, hematocrit 26.5, platelets 194. Chemistr y significant for elevated glucose of 195 this morning. RADIOGRAPHIC FINDINGS: There are no images to review today. ASSESSMENT: 1. Status post ground level fall. 2. Right hip fracture. 3. Acute traumatic pain. 4. Right knee pain and swelling. 5. History of hypertension, present on admission. 6. History of diabetes, present on admission. 7. History of congestive heart failure present on admission. PLAN: The patient is approved for transfer to rehabilitation at [facility]. He has had a couple of intermittent episodes of hypotension when sitting in the chair. The patient's clinical exam support s that he is somewhat hypovolemic. He has been taking Lasix and has had little p.o. fluid intake. H e is also producing minimal urine, which is somewhat concentrated. We will give a fluid bolus and se e how his blood pressure responds to that. Otherwise, he is stable for discharge. Anticipate discha rging to rehab in the morning. This patient was seen and examined on rounds with Dr. Wai Manriquez who agrees with this assessment a nd plan.
[2017-10-14] MEDS: Enoxaparin Sodium 40 MG/0.4 ML SYRINGE SC SCH (20:34)
[2017-10-14] MEDS: Terazosin HCl 5 MG CAP PO SCH (20:35)
[2017-10-15] MEDS: Acetaminophen 500 MG TAB PO SCH ×3 (04:00→14:24)
[2017-10-15] MEDS: Ibuprofen 800 MG TAB PO SCH ×2 (04:00→13:03)
[2017-10-15 05:03] VITALS: BMI 45.2
[2017-10-15] MEDS: Hydrocortisone Sod Succ/PF 100 mg/2 ml Vial IVP SCH (06:31)
[2017-10-15] MEDS ORDERED: cloNIDine 0.3mg/24 Hour PATCH TD SCH (09:00)
[2017-10-15] MEDS: hydrALAZINE 25 MG TAB PO SCH ×2 (10:12→14:24)
[2017-10-15] MEDS: Famotidine 20 MG TAB PO SCH (10:13)
[2017-10-15] MEDS: Tamsulosin HCl 0.4 MG CAP PO SCH (10:13)
[2017-10-15] MEDS: Carvedilol 25 MG TAB PO SCH (10:13)
[2017-10-15] MEDS: Docusate 100 MG CAP PO SCH (10:14)
[2017-10-15] MEDS: Furosemide 40 MG TAB PO SCH (10:14)
[2017-10-15] MEDS: Polyethylene Glycol 3350 17 GM Packet PO SCH (10:15)
[2017-10-15] MEDS: Bisacodyl 10 MG SUPP PR SCH (10:15)
[2017-10-15 12:40] VITALS: TEMP 98.2
--- NOTE | 2017-10-15 13:00 | DIS ---
DATE OF ADMISSION: 10/08/2017 DATE OF DISCHARGE: 10/15/2017 ADMITTING PHYSICIAN: Dr. Slade Hagan. DISCHARGING PHYSICIAN: Dr. Guaman. CHIEF COMPLAINT: Right hip fracture. 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 He had no loss of consciousness or head injury. He was evaluated at [facility], found to have a right hip fracture and transferred to [place] for surgical fixation of his rig ht hip. The patient had a preoperative evaluation by Dr. Edwards. Given that the patient had a histo ry of nonischemic cardiomyopathy with an ejection fraction reportedly of 15% to 20%. This had subseq uently improved and he was judged to be an appropriate candidate for surgery from a cardiac point of view. Dr. Darshan Solomon from Orthopedics was consulted. Initially, the recommendation was for de layed surgery with possibility of not doing surgery at all. However, it was eventually decided to go for open reduction internal fixation, which was done on 10/11/2017. The patient was thereafter lundberg sferred to the surgical floor for pain management and supportive care measures as needed. The patisammy t had a couple of episodes of hypotension while on the floor. Serum cortisol was drawn and the bernard nt was started on hydrocortisone, after which his blood pressure normalized. He had one further subs equent episode, which was deemed to be due to hypovolemia. The patient was given 500 mL bolus of nor mal saline and his blood pressure normalized after that and remained normal throughout the rest of hi s stay. He was discharged in good condition on 10/15/2017 to rehabilitation. DISCHARGE MEDICATIONS: The patient was discharged to rehab with all of his inpatient medications. Rhonda talamantes see the electronic medical record for details. ACTIVITY INSTRUCTIONS: The patient is discharged with orthopedic limitations including weightbearing as tolerated with 25% on the right lower extremity. NOURISHMENT INSTRUCTIONS: The patient discharged on a regular diet. THERAPY INSTRUCTIONS. The patient to receive occupational, physical therapy, and rehabilitation. FOLLOWUP INSTRUCTIONS: The patient is to follow up with his primary care provider, Dr. Mario Alberto Lozoya in 10-14 days. The patient also instructed to follow up with Dr. Darshan Solomon in 10-[address] mcginnis removed in rehabilitation in 14 days. This patient was discussed over the phone with Dr. Wai Manriquez, who agrees with the assessment and plan.
[2017-10-15 14:26] VITALS: BP 131/65
== END 2017-10-15 14:50 | DRG 470 ==
LOC: ERS 22:59 → SURG A 10-08 00:30
PROVIDERS: ADMIT Specialist; ATTEND Specialist
PROC: 0QS404Z Reposition Right Acetabulum with Internal Fixation Device, Open Approach (ICD-10-PCS; principal; 2017-10-11)
PROC: 0SR90JA Replacement of Right Hip Joint with Synthetic Substitute, Uncemented, Open Approach (ICD-10-PCS; 2017-10-11)
DX: S32.441A Displaced fracture of posterior column [ilioischial] of right acetabulum, initial encounter for closed fracture (principal); I42.9 Cardiomyopathy, unspecified; Z68.42 Body mass index [BMI] 45.0-49.9, adult; I11.0 Hypertensive heart disease with heart failure; I50.9 Heart failure, unspecified; G89.11 Acute pain due to trauma; M16.11 Unilateral primary osteoarthritis, right hip; E78.5 Hyperlipidemia, unspecified; E11.9 Type 2 diabetes mellitus without complications; R33.9 Retention of urine, unspecified; E66.9 Obesity, unspecified; Z87.891 Personal history of nicotine dependence; Z79.84 Long term (current) use of oral hypoglycemic drugs; W18.39XA Other fall on same level, initial encounter; Y93.89 Activity, other specified; Y92.89 Other specified places as the place of occurrence of the external cause; Y99.0 Civilian activity done for income or pay
CPT/HCPCS: 36415; 36416; 71045; 72170; 72190; 72192; 76001; 80048; 82533; 83735; 84100; 85025; 86850; 86900; 86901; 90471; 90732; 93005; 93010; 93306; 96374; C1713; C1776; G0009; G0390; G8978-GP-CL; G8978-GP-CM; G8979-GP-CJ; G8979-GP-CL; G8987-GO-CM; G8988-GO-CK; J1170; J1650; J1720; J1815; J1885; J2001; J2250; J2270; J2405; J2704; J3010

== ENCOUNTER 2017-12-22 08:53 | Outpatient (CLI) | payer OTHER ==
--- NOTE | 2017-12-22 10:29 | HP ---
DATE OF SERVICE: 12/22/2017 HISTORY OF PRESENT ILLNESS: Mr. Adalid Maldonado is a very pleasant 62-year-old gentleman who pr esents to the Wound Center for evaluation of an ulceration of the right knee. The patient states mike t he fell on concrete at work on 10/07/2017. He states that on 10/11/2017, he underwent ORIF of the right acetabulum posterior column in conjunction with right total hip arthroplasty. The patient stat es that 1 month later, a wound of the right knee was debrided by Dr. Solomon. The patient states th at at this time, he was placed on wet to dry dressing changes for 2 weeks. The patient states that ileana michaels was seen by Dr. Solomon 1 week ago and at this time referred to the Wound Center for further evalu ation and treatment. PAST MEDICAL HISTORY: 1. Hypertension. 2. Nonischemic cardiomyopathy. 3. History of Mathew's palsy. 4. Diabetes mellitus. PAST SURGICAL HISTORY: 1. Tonsillectomy. 2. Open reduction and internal fixation of right acetabulum posterior column and right total hip art hroplasty on 10/11/2017. MEDICATIONS: 1. Benicar. 2. Atorvastatin. 3. Coreg. 4. Hydralazine. 5. Lasix. 6. Terazosin. 7. Aspirin 81 mg. 8. Multivitamin. 9. Vitamin C. 10. Tramadol p.r.n. ALLERGIES: No known diagnosed allergies. SOCIAL HISTORY: Significant for tobacco use of 2 packs of cigarettes per day for 10 years. The [facility] ent states that he stopped smoking in 1983. The patient admits to the social consumption of alcohol. FAMILY HISTORY: Significant for diabetes mellitus. The patient states that his father and one sibli ng were diagnosed with diabetes mellitus. Family history is negative for coronary artery disease. PHYSICAL EXAMINATION: VITAL SIGNS: Temperature 97.9, pulse 62, respirations 18, blood pressure 152/67. Accu-Chek 172. GENERAL: A 62-year-old gentleman sitting in examination room in no acute distress. HEENT: Normocephalic, atraumatic. NECK: No nuchal rigidity. CHEST: Clear to auscultation. CARDIAC: Regular rate and rhythm. ABDOMEN: Soft. EXTREMITIES: An ulceration of the right knee is present which measures approximately 1.4 x 1.3 cm. Granulation tissue is present within the wound margins. No purulent drainage is associated with the wound. No erythema of the skin surrounding the wound is present. No maceration of the skin of the p eriwound is noted. ASSESSMENT AND PLAN: 1. Ulceration of right anterior knee as described above. Dressing changes of Medihoney gauze and Me pilex border will be initiated today. These dressing changes are to be performed on a daily basis af ter cleansing and irrigation. No antibiotics will be prescribed today based upon the appearance of t he wound. I will see Mr. Maldonado again in 1 week. 2. Hypertension. 3. Diabetes mellitus. The patient's Accu-Chek in clinic today is 172. The patient has been told th at for optimal wound healing, his blood glucoses should remain below 150. 4. Nonischemic cardiomyopathy. 5. History of Mathew's palsy.
== END 2017-12-22 08:54 | disposition home or self-care (01) ==
LOC: WCC 08:53
PROVIDERS: ATTEND Family Medicine
DX: E11.622 Type 2 diabetes mellitus with other skin ulcer (principal); L97.819 Non-pressure chronic ulcer of other part of right lower leg with unspecified severity; I11.9 Hypertensive heart disease without heart failure; I42.9 Cardiomyopathy, unspecified; Z86.69 Personal history of other diseases of the nervous system and sense organs
CPT/HCPCS: 36416; 97602; 99203; G0463

== ENCOUNTER 2017-12-28 08:45 | Outpatient (CLI) | payer OTHER ==
--- NOTE | 2017-12-28 09:39 | PRG ---
DATE OF SERVICE: 12/28/2017 HISTORY: Mr. Adalid Maldonado is a very pleasant 62-year-old gentleman who presents to the Wound C enter for evaluation of an ulceration of the right knee. The patient previously stated that he fell on concrete at work on 10/07/2017. He stated that on 10/11/2017 he underwent ORIF of the right aceta bulum posterior column in conjunction with right total hip arthroplasty. The patient stated that one month later, a wound of the right knee was debrided by Dr. Solomon. The patient stated that at thi s time, he was placed on wet to dry dressing changes for 2 weeks. The patient stated that he was see n by Dr. Solomon one week prior to his initial presentation to the Wound Center. At this time, the patient was referred to the Wound Center for further evaluation and treatment. After being seen in [facility], the patient was placed on dressing changes of Medihoney gauze and Mepilex border. [facility] patient states he has been performing these dressing changes as prescribed. PHYSICAL EXAMINATION: VITAL SIGNS: Temperature 97.6, pulse 65, respirations 18, blood pressure 156/71. Accu-Chek 149. EXTREMITIES: An ulceration of the right knee is present which measures approximately 1.0 x 1.0 cm. Granulation tissue is present within the wound margins. No purulent drainage is associated with the wound. No erythema of the skin surrounding the wound is present. No maceration of the skin of the p eriwound is noted. ASSESSMENT AND PLAN: 1. Ulceration of right anterior knee as described above. Dressing changes of Medihoney gauze and olivia rdered gauze are to be performed on a daily basis after cleansing and irrigation. Arrangements will be made for the home delivery of dressing supplies. I will see Mr. Maldonado again in one week. 2. Hypertension. 3. Diabetes mellitus. The patient's Accu-Chek in clinic today is 149. The patient has been reminde d that for optimal wound healing, his blood glucoses should remain below 150. 4. Nonischemic cardiomyopathy. 5. History of Mathew's palsy.
== END 2017-12-28 08:46 | disposition home or self-care (01) ==
LOC: WCC 08:45
PROVIDERS: ATTEND Family Medicine
DX: E11.622 Type 2 diabetes mellitus with other skin ulcer (principal); L97.819 Non-pressure chronic ulcer of other part of right lower leg with unspecified severity; I10 Essential (primary) hypertension; I42.9 Cardiomyopathy, unspecified; Z86.69 Personal history of other diseases of the nervous system and sense organs
CPT/HCPCS: 36416; 97602

== ENCOUNTER 2018-01-04 08:34 | Outpatient (CLI) | payer OTHER ==
--- NOTE | 2018-01-04 09:38 | PRG ---
DATE OF SERVICE: 01/04/2018 HISTORY: Mr. Adalid Maldonado is a very pleasant 62-year-old gentleman who presents to the Wound C enter for evaluation of an ulceration of the right knee. The patient previously stated that he fell on concrete at work on 10/07/2017. He stated that on 10/11/2017, he underwent ORIF of the right acet abulum posterior column in conjunction with right total hip arthroplasty. The patient stated that on e month later, a wound of the right knee was debrided by Dr. Solomon. The patient stated that at th is time he was placed on wet to dry dressing changes for 2 weeks. The patient stated that he was see n by Dr. Solomon one week prior to his initial presentation to the Wound Center. At this time, the patient was referred to the Wound Center for further evaluation and treatment. After being seen in [facility], the patient was placed on dressing changes of Medihoney, gauze, and Mepilex border. The patient states he has been performing dressing changes of Medihoney on a daily basis after clean sing and irrigation. PHYSICAL EXAMINATION: VITAL SIGNS: Temperature 97.7, pulse 65, respirations 20, blood pressure 133/64. Accu-Chek 163. EXTREMITIES: An ulceration of the right knee is present which measures approximately 1.2 x 1.2 cm. Granulation tissue is present within the wound margins. No purulent drainage is associated with the wound. No erythema of the skin surrounding the wound is present. No maceration of the skin of the p eriwound is noted. ASSESSMENT AND PLAN: 1. Ulceration of right anterior knee as described above. Dressing changes of Medihoney, gauze and b ordered gauze will be continued on a daily basis after cleansing and irrigation. Arrangements were p reviously made for the home delivery of dressing supplies. The patient has a followup appointment wi Dr. Solomon in 2 weeks. I will see Mr. Maldonado again in 3 weeks. 2. Hypertension. 3. Diabetes mellitus. The patient's Accu-Chek in clinic today is 163. The patient has been reminde d that for optimal wound healing, his blood glucoses should remain below 150. 4. Nonischemic cardiomyopathy. 5. History of Mathew's palsy.
== END 2018-01-04 08:35 | disposition home or self-care (01) ==
LOC: WCC 08:34
PROVIDERS: ATTEND Family Medicine
DX: L97.819 Non-pressure chronic ulcer of other part of right lower leg with unspecified severity (principal); E11.9 Type 2 diabetes mellitus without complications; I10 Essential (primary) hypertension; I42.8 Other cardiomyopathies; Z86.69 Personal history of other diseases of the nervous system and sense organs
CPT/HCPCS: 36416; 97602

== ENCOUNTER 2018-01-25 08:57 | Outpatient (CLI) | payer OTHER ==
--- NOTE | 2018-01-25 10:19 | PRG ---
DATE OF SERVICE: 01/25/2018 HISTORY: Mr. Adalid Maldonado is a very pleasant 63-year-old gentleman who presents to the Wound C enter for evaluation of an ulceration of the right knee. The patient previously stated that he fell on concrete at work on 10/07/2017. He stated that on 10/11/2017, he underwent ORIF of the right acet abulum posterior column in conjunction with right total hip arthroplasty. The patient stated that on e month later, a wound of the right knee was debrided by Dr. Solomon. The patient stated that at th is time, he was placed on wet to dry dressing changes for 2 weeks. The patient stated that he was se en by Dr. Solomon one week prior to his initial presentation to the Wound Center. At this time, the patient was referred to the Wound Center for further evaluation and treatment. After being seen in the Wound Center, the patient was placed on dressing changes of Medihoney gauze and Mepilex border. The patient states that he has been performing dressing changes of Medihoney on a daily basis after c leansing and irrigation. PHYSICAL EXAMINATION: VITAL SIGNS: Temperature 97.6, pulse 62, respirations 18, blood pressure 128/60. Accu-Chek 197. EXTREMITIES: An ulceration of the right knee is present which measures approximately 0.6 x 0.5 cm. The dimensions of the wound at the time of the patient's visit on 01/04/2018 were approximately 1.2 x 1.2 cm. Granulation tissue is present within the wound margins. No purulent drainage is associated with the wound. No erythema of the skin surrounding the wound is present. No maceration of the ski n of the periwound is noted. ASSESSMENT AND PLAN: 1. Ulceration of right anterior knee as described above. Dressing changes of Medihoney gauze and olivia rdered gauze will be continued on a daily basis after cleansing and irrigation. The patient has a fo llowup appointment with Dr. Solomon in 1 week. I will see Mr. Maldonado again in 3 weeks if the woun d is still present at this time. 2. Hypertension. 3. Diabetes mellitus. The patient's Accu-Chek in clinic today is 197. The patient has been reminde d that for optimal wound healing, his blood glucoses should remain below 150. 4. Nonischemic cardiomyopathy. 5. History of Mathew's palsy.
[2018-01-25] MEDS ORDERED: Sodium Chloride 0.9% 15 ML NEB ONE (14:31)
== END 2018-01-25 08:58 | disposition home or self-care (01) ==
LOC: WCC 08:57
PROVIDERS: ATTEND Family Medicine
DX: E11.622 Type 2 diabetes mellitus with other skin ulcer (principal); L97.819 Non-pressure chronic ulcer of other part of right lower leg with unspecified severity; I10 Essential (primary) hypertension; I42.9 Cardiomyopathy, unspecified; Z86.69 Personal history of other diseases of the nervous system and sense organs
CPT/HCPCS: 36416; 97602; A4218

== ENCOUNTER 2018-02-16 10:12 | Outpatient (CLI) | payer OTHER ==
--- NOTE | 2018-02-16 10:58 | PRG ---
DATE OF SERVICE: 02/16/2018 HISTORY: Mr. Adalid Maldonado is a very pleasant 63-year-old gentleman who presents to the Wound C enter for evaluation of an ulceration of the right knee. The patient previously stated that he fell on concrete at work on 10/07/2017. He stated that on 10/11/2017, he underwent ORIF of the right acet abulum posterior column in conjunction with right total hip arthroplasty. The patient stated that on e month later, a wound of the right knee was debrided by Dr. Solomon. The patient stated that at th is time, he was placed on wet to dry dressing changes for 2 weeks. The patient stated that he was se en by Dr. Solomon one week prior to his initial presentation to the Wound Center. At this time, the patient was referred to the Wound Center for further evaluation and treatment. After being seen in the Wound Center, the patient was placed on dressing changes of Medihoney, gauze and Mepilex border. The patient states that he has been performing dressing changes of Medihoney with the assistance of his . PHYSICAL EXAMINATION: VITAL SIGNS: Temperature 98.1, pulse 66, respirations 18, blood pressure 125/60. Accu-Chek 117. EXTREMITIES: The ulceration of the right knee has healed completely. ASSESSMENT AND PLAN: 1. Ulceration of right anterior knee. As stated above, the ulceration has completely healed. Mr. Mickie Hayes will be discharged from clinic today with followup on a p.r.n. basis. 2. Hypertension. 3. Diabetes mellitus. The patient's Accu-Chek in clinic today is 117. The patient has been reminde d that for optimal wound healing, his blood glucoses should remain below 150. 4. Nonischemic cardiomyopathy. 5. History of Mathew's palsy.
== END 2018-02-16 10:13 | disposition home or self-care (01) ==
LOC: WCC 10:12
PROVIDERS: ATTEND Family Medicine
DX: E11.622 Type 2 diabetes mellitus with other skin ulcer (principal); L97.819 Non-pressure chronic ulcer of other part of right lower leg with unspecified severity; I10 Essential (primary) hypertension; I42.9 Cardiomyopathy, unspecified; Z86.69 Personal history of other diseases of the nervous system and sense organs
CPT/HCPCS: 36416

== ENCOUNTER 2020-11-20 12:19 | Observation (INO) | payer OTHER ==
[2020-11-20 13:34] LABS: #Eosinphils 0.3 thou/uL (0.0-0.7); #Lymphocytes 1.5 thou/uL (1.20-3.40); #Neutrophils 6.8 thou/uL (1.40-6.50); %Basophils 0.2 % (0.0-1.0); %Eosinophils 3.1 % (0.0-10.0); %Lymphocytes 15.9 % (21.0-51.0); %Monocytes 10.8 % (0.0-10.0); Mean Corpuscular HGB CONC 33.4 g/dL (32.0-36.0); Mean Corpuscular Hemoglobin 30.3 pg (27.0-31.0); Mean Corpuscular Volume 90.7 fL (78.0-98.0); Mean Platelet Volume 9.5 fL (7.4-10.4); Platelet Count 179 thou/uL (130-400); RBC Distribution Width 13.6 % (11.5-14.5); Red Blood Cell (RBC) Count 3.95 mill/uL (4.70-6.10); White Blood Cell (WBC) Count 9.7 thou/uL (4.8-10.8)
[2020-11-20 13:53] LABS: ALT (SGPT) 16 U/L (8-55); AST (SGOT) 16 U/L (5-34); Albumin 3.8 g/dL (3.4-4.8); Alkaline Phosphatase 59 U/L (40-110); Anion Gap 18 mmol/L (10-20); BUN (Urea Nitrogen) 23 mg/dL (8.4-25.7); Bilirubin, Total 0.5 mg/dL (0.2-1.2); Calc. Creatinine Clearance 0 mL/min (70-130); Calcium 9.3 mg/dL (7.8-10.44); Carbon Dioxide 25 mmol/L (23-31); Chloride 98 mmol/L (98-107); Globulin 3.6 g/dL (2.4-3.5); Glucose 138 mg/dL (80-115); Potassium 4.5 mmol/L (3.5-5.1); Protein, Total 7.4 g/dL (5.8-8.1); Sodium 136 mmol/L (136-145)
[2020-11-20] MEDS ORDERED: Zolpidem Tartrate 5 MG TAB PO PRN (17:15)
[2020-11-20] MEDS ORDERED: Ondansetron ODT 4 MG TAB PO PRN (17:15)
[2020-11-20] MEDS ORDERED: Loperamide HCl 2 MG CAP PO PRN (17:15)
[2020-11-20] MEDS ORDERED: Ondansetron PF 4 MG/2 ML Vial IVP PRN (17:15)
[2020-11-20] MEDS ORDERED: Senokot S 8.6-50 MG TAB PO PRN (17:15)
[2020-11-20] MEDS ORDERED: HumaLOG 300 UNITS/3 ML VIAL SC PRN ×2 (17:15)
[2020-11-20] MEDS ORDERED: HYDROcodone/Acetaminophen 5/325 mg Tablet PO PRN (17:15)
[2020-11-20] MEDS ORDERED: Calcium Carbonate 500 MG ChewTAB PO PRN (17:15)
[2020-11-20] MEDS ORDERED: Guaifenesin DM 100-10/5 ML UDCUP PO PRN (17:15)
[2020-11-20] MEDS ORDERED: Bisacodyl 10 MG SUPP PR PRN (17:15)
[2020-11-20] MEDS ORDERED: Dextrose 50% Abboject 50 ML SYRINGE SLOW IVP PRN (17:15)
[2020-11-20] MEDS ORDERED: Dextrose 5% in Water 1,000 ML IV PRN (17:15)
[2020-11-20 19:13] LABS: Troponin I 0.082 ng/mL (< 0.028)
[2020-11-20 20:40] VITALS: BMI 43.4
[2020-11-20 21:10] LABS: Troponin I 0.076 ng/mL (< 0.028)
[2020-11-20] MEDS: Famotidine 20 MG TAB PO SCH (22:54)
[2020-11-21 01:51] LABS: SARS-CoV-2 PCR NAA for Saliva Not Detected (NotDetected)
[2020-11-21 04:42] LABS: #Eosinphils 0.3 thou/uL (0.0-0.7); #Lymphocytes 1.6 thou/uL (1.20-3.40); #Monocytes 1.1 thou/uL (0.11-0.59); #Neutrophils 5.6 thou/uL (1.40-6.50); %Basophils 0.3 % (0.0-1.0); %Eosinophils 3.9 % (0.0-10.0); %Lymphocytes 18.6 % (21.0-51.0); %Monocytes 12.4 % (0.0-10.0); %Neutrophils 64.7 % (42.0-75.0); Mean Corpuscular HGB CONC 32.8 g/dL (32.0-36.0); Mean Corpuscular Hemoglobin 29.7 pg (27.0-31.0); Mean Corpuscular Volume 90.6 fL (78.0-98.0); Mean Platelet Volume 9.6 fL (7.4-10.4); Platelet Count 168 thou/uL (130-400); RBC Distribution Width 13.5 % (11.5-14.5); White Blood Cell (WBC) Count 8.6 thou/uL (4.8-10.8)
[2020-11-21 05:08] LABS: Anion Gap 12 mmol/L (10-20); BUN (Urea Nitrogen) 22 mg/dL (8.4-25.7); Calc. Creatinine Clearance 172 mL/min (70-130); Calcium 9.1 mg/dL (7.8-10.44); Carbon Dioxide 32 mmol/L (23-31); Cardiac Risk 6.2 (Less than 4.5); Chloride 98 mmol/L (98-107); Cholesterol 112 mg/dl (< 200 Desired); Glucose 163 mg/dL (80-115); HDL Cholesterol 18 mg/dL (>60 Neg Risk); LDL Cholesterol, Calculated 62 mg/dL; Potassium 3.9 mmol/L (3.5-5.1); Sodium 138 mmol/L (136-145); Triglycerides 158 mg/dL (Less than 150)
[2020-11-21] MEDS ORDERED: Carvedilol 25 MG TAB PO SCH (09:00)
[2020-11-21] MEDS: Famotidine 20 MG TAB PO SCH ×2 (10:52→21:29)
[2020-11-21] MEDS: Furosemide 40 MG TAB PO SCH (10:52)
[2020-11-21] MEDS: Aspirin Chewable 81 MG TAB PO SCH (10:52)
[2020-11-21] MEDS: Spironolactone 25 MG TAB PO SCH ×2 (10:52→21:29)
[2020-11-21] MEDS: Atorvastatin Calcium 20 MG TAB PO SCH (10:52)
[2020-11-21] MEDS ORDERED: Regadenoson 0.4 MG/5 ML SYRINGE ONE (11:02)
[2020-11-21] MEDS: Carvedilol 25 MG TAB PO SCH (17:11)
[2020-11-21] MEDS: Acetaminophen 325 MG TAB PO PRN (21:29)
[2020-11-22] MEDS: Famotidine 20 MG TAB PO SCH (10:00)
[2020-11-22] MEDS: Aspirin Chewable 81 MG TAB PO SCH (10:00)
[2020-11-22] MEDS: Furosemide 40 MG TAB PO SCH (10:00)
[2020-11-22] MEDS: Spironolactone 25 MG TAB PO SCH (10:00)
[2020-11-22] MEDS: Atorvastatin Calcium 20 MG TAB PO SCH (10:01)
[2020-11-22] MEDS: Carvedilol 25 MG TAB PO SCH (10:01)
[2020-11-22] MEDS: Acetaminophen 325 MG TAB PO PRN (10:07)
[2020-11-22 12:37] VITALS: BP 128/60; TEMP 98.1
[2020-11-22] MEDS ORDERED: Carvedilol 25 MG TAB PO SCH (17:00)
== END 2020-11-22 16:50 | disposition home or self-care (01) ==
LOC: ERS 12:19 → 2NO 17:15
PROVIDERS: ADMIT Internal Medicine; ATTEND Internal Medicine
DX: R55 Syncope and collapse (principal); R07.89 Other chest pain; I11.0 Hypertensive heart disease with heart failure; I50.22 Chronic systolic (congestive) heart failure; E11.9 Type 2 diabetes mellitus without complications; E78.5 Hyperlipidemia, unspecified; I42.8 Other cardiomyopathies; E78.00 Pure hypercholesterolemia, unspecified; I44.0 Atrioventricular block, first degree; I87.2 Venous insufficiency (chronic) (peripheral); E66.01 Morbid (severe) obesity due to excess calories; Z68.41 Body mass index [BMI] 40.0-44.9, adult; Z87.891 Personal history of nicotine dependence; Z79.82 Long term (current) use of aspirin; Z79.84 Long term (current) use of oral hypoglycemic drugs; Z79.899 Other long term (current) drug therapy; Z20.822 Contact with and (suspected) exposure to COVID-19
CPT/HCPCS: 36415; 36416; 71045; 78452; 80048; 80053; 80061; 83880; 84484; 85025; 87635; 93005; 93017; 93306; 94760; A9500; G0378; J1815; J2785; U0003; U0005

== ENCOUNTER 2022-01-25 10:48 | Outpatient (CLI) | payer MEDICARE ==
[2022-01-25 11:57] LABS: #Basophils 0.1 10x3/uL (0.0-0.2); #Eosinphils 0.2 10x3/uL (0.0-0.5); #Neutrophils 5.4 10x3/uL (1.5-8.4); %Basophils 0.6 % (0.0-2.0); %Eosinophils 2.9 % (0.0-6.0); %Lymphocytes 18.1 % (18.0-47.0); %Monocytes 12.1 % (0.0-10.0); %Neutrophils 65.7 % (40.0-75.0); Hemoglobin 12.2 g/dL (13.5-17.5); Mean Corpuscular HGB CONC 33.1 g/dL (32.0-36.0); Mean Corpuscular Hemoglobin 30.7 pg (27.0-33.0); Mean Corpuscular Volume 92.9 fl (81.2-95.1); Mean Platelet Volume 11.7 fl (7.4-10.4); Platelet Count 186 10x3/uL (150-450); RBC Distribution Width 13.6 % (11.5-14.5); Red Blood Cell (RBC) Count 3.97 10x6/uL (4.32-5.72); White Blood Cell (WBC) Count 8.3 10x3/uL (3.5-10.5)
[2022-01-25 12:12] LABS: INR-International Normal Ratio 1.1; Prothrombin Time 11.4 sec (9.5-12.1)
[2022-01-25 12:17] LABS: Anion Gap 17 mmol/L (10-20); BUN (Urea Nitrogen) 33 mg/dL (8.4-25.7); Calc. Creatinine Clearance 0 mL/min (70-130); Calcium 9.3 mg/dL (7.8-10.44); Carbon Dioxide 26 mmol/L (23-31); Chloride 99 mmol/L (98-107); Glucose 169 mg/dL (80-115); Potassium 4.7 mmol/L (3.5-5.1); Sodium 137 mmol/L (136-145)
== END 2022-01-25 10:49 | disposition home or self-care (01) ==
LOC: LABBT 10:48
PROVIDERS: ATTEND Orthopaedic Surgery
DX: Z01.812 Encounter for preprocedural laboratory examination (principal); M17.12 Unilateral primary osteoarthritis, left knee; Z20.822 Contact with and (suspected) exposure to COVID-19
CPT/HCPCS: 80048; 85025; 85610; 87081; U0003; U0005

== ENCOUNTER 2022-01-27 17:41 | Observation (INO) | payer MEDICARE ==
[2022-01-25 14:13] VITALS: BMI 43.4
[2022-01-27] MEDS: CEFAZOLIN 2 GM in Sodium Chloride 0.9% 100 ML IVPB SCH ×2 (13:56→23:23)
[~2022-01-27 17:41] MED LIST: Acetaminophen 325 MG TAB PO PRN; Bupivacaine 0.25% HCL 30 ML VIAL ONE; Bupivacaine HCl 0.5%/Epinephrine 1:200,000/PF 30 ml Vial ONE; CEFAZOLIN 2 GM VIAL ONE; EPINEPHrine 1 MG/ML AMP ONE; Fentanyl 100 MCG/2 ML VIAL IV PRN; Fentanyl 100 MCG/2 ML VIAL ONE; Glycopyrrolate 0.2 MG/ML 5 ML SYRINGE ONE; HYDROcodone/Acetaminophen 10/325 mg Tablet PO PRN; Ketorolac Tromethamine 30 MG/ML VIAL ONE; Lidocaine 1% PF 5 ML VIAL ONE; Lidocaine 2% Jelly 5 ML TUBE ONE; Meperidine HCl/PF 25 MG/ML VIAL ONE; Midazolam HCl 2 mg/2 ml Vial ONE; Ondansetron HCl/PF 4 MG/2 ML Vial IVP PRN; Ondansetron PF 4 MG/2 ML Vial IVP PRN; Ondansetron PF 4 MG/2 ML Vial ONE; PROPOFOL 200 MG/20 ML VIAL ONE; Promethazine HCl 25 MG/ML VIAL IM PRN; Promethazine HCl 25 MG/ML VIAL IVPB PRN; Rocuronium Bromide 10 MG/ML (10ML VIAL) ONE; Ropivacaine HCl/PF 250 ML in Premix Bag 1 BAG NERVE BLCK SCH; Sodium Chloride 0.9% 100 ML ONE; Tranexamic Acid 1,000 MG/10 ML VIAL ONE; VANCOMYCIN 2 GRAM/500 ML BAG 2 GM in Premix Bag 1 BAG IVPB SCH; Zolpidem Tartrate 5 MG TAB PO PRN; diphenhydrAMINE 25 MG CAP PO PRN; ePHEDrine 50 MG/ML VIAL ONE; fentaNYL Citrate/PF 100 MCG/2 ML SYRINGE ONE; traMADol HCl 50 MG TAB PO PRN
[2022-01-27] MEDS ORDERED: VANCOMYCIN 2 GRAM/500 ML BAG 2 GM in Premix Bag 1 BAG IVPB SCH (18:00)
[2022-01-27] MEDS: Sodium Chloride 0.9% 1,000 ML IV SCH ×2 (18:14→22:46)
[2022-01-27] MEDS: HYDROcodone/Acetaminophen 10/325 mg Tablet PO PRN (18:46)
[2022-01-27] MEDS: Terazosin HCl 5 MG CAP PO SCH (19:44)
[2022-01-27] MEDS: Atorvastatin Calcium 20 MG TAB PO SCH (19:44)
[2022-01-27] MEDS: Carvedilol 6.25 MG TAB PO SCH (19:44)
[2022-01-27] MEDS ORDERED: Dextrose 5% in Water 1,000 ML IV PRN (20:11)
[2022-01-27] MEDS ORDERED: HumaLOG 300 UNITS/3 ML VIAL SC PRN ×2 (20:11)
[2022-01-27] MEDS ORDERED: Dextrose 50% Abboject 50 ML SYRINGE SLOW IVP PRN (20:11)
[2022-01-27] MEDS: Apixaban 5 MG TAB PO SCH (23:14)
[2022-01-27] MEDS: Famotidine 20 MG TAB PO SCH (23:15)
[2022-01-28 05:52] LABS: Hemoglobin 10.9 g/dL (14.0-18.0); Mean Corpuscular HGB CONC 33.3 g/dL (32.0-36.0); Mean Corpuscular Hemoglobin 32.2 pg (27.0-31.0); Mean Corpuscular Volume 96.6 fL (78.0-98.0); Mean Platelet Volume 8.7 fL (7.4-10.4); Platelet Count 134 thou/uL (130-400); RBC Distribution Width 12.9 % (11.5-14.5); White Blood Cell (WBC) Count 11.6 thou/uL (4.8-10.8)
[2022-01-28] MEDS: HYDROcodone/Acetaminophen 10/325 mg Tablet PO PRN ×3 (05:52→14:39)
[2022-01-28] MEDS: Furosemide 40 MG TAB PO SCH (08:03)
[2022-01-28] MEDS: metFORMIN 500 MG TAB PO SCH ×2 (08:03→18:18)
[2022-01-28] MEDS: Senokot S 8.6-50 MG TAB PO SCH ×2 (08:03→20:56)
[2022-01-28] MEDS: Aspirin 81 mg Enteric Coated Tablet PO SCH (08:03)
[2022-01-28] MEDS: Spironolactone 25 MG TAB PO SCH ×2 (08:03→18:18)
[2022-01-28] MEDS: Multivitamin W/ Minerals 1 TAB PO SCH (08:03)
[2022-01-28] MEDS: Amiodarone 200 MG TAB PO SCH (08:04)
[2022-01-28] MEDS: Ferrous Gluconate 324 MG TAB PO SCH ×2 (08:04→18:18)
[2022-01-28] MEDS: Famotidine 20 MG TAB PO SCH ×2 (08:04→20:52)
[2022-01-28] MEDS: Apixaban 5 MG TAB PO SCH ×2 (08:04→20:52)
[2022-01-28] MEDS: Carvedilol 6.25 MG TAB PO SCH ×2 (08:04→20:54)
[2022-01-28 08:31] LABS: Anion Gap 10 mmol/L (10-20); BUN (Urea Nitrogen) 22 mg/dL (8.4-25.7); Calc. Creatinine Clearance 159 mL/min (70-130); Calcium 8.5 mg/dL (7.8-10.44); Carbon Dioxide 28 mmol/L (23-31); Chloride 100 mmol/L (98-107); Glucose 177 mg/dL (80-115); Potassium 4.3 mmol/L (3.5-5.1); Sodium 134 mmol/L (136-145)
[2022-01-28] MEDS: Sodium Chloride 0.9% 1,000 ML IV SCH ×2 (09:51→16:04)
[2022-01-28] MEDS: Atorvastatin Calcium 20 MG TAB PO SCH (20:52)
[2022-01-28] MEDS: Gabapentin 100 MG CAP PO SCH (20:55)
[2022-01-28] MEDS: Terazosin HCl 5 MG CAP PO SCH (20:56)
[2022-01-29 06:11] LABS: Anion Gap 14 mmol/L (10-20); BUN (Urea Nitrogen) 24 mg/dL (8.4-25.7); Calc. Creatinine Clearance 131 mL/min (70-130); Calcium 8.6 mg/dL (7.8-10.44); Carbon Dioxide 25 mmol/L (23-31); Chloride 98 mmol/L (98-107); Glucose 164 mg/dL (80-115); Hemoglobin 10.5 g/dL (14.0-18.0); Mean Corpuscular HGB CONC 32.6 g/dL (32.0-36.0); Mean Corpuscular Volume 98.1 fL (78.0-98.0); Mean Platelet Volume 9.1 fL (7.4-10.4); Platelet Count 135 thou/uL (130-400); Potassium 4.1 mmol/L (3.5-5.1); Red Blood Cell (RBC) Count 3.28 mill/uL (4.70-6.10); Sodium 133 mmol/L (136-145)
[2022-01-29 06:38] LABS: Band 4 % (5-11); Lymphocytes 15 % (21-51); MDiff Complete? YES; Monocytes 10 % (0-10); Neutrophil 70 % (42-75)
[2022-01-29] MEDS: Sodium Chloride 0.9% 1,000 ML IV SCH ×2 (06:40→11:22)
[2022-01-29] MEDS: Aspirin 81 mg Enteric Coated Tablet PO SCH (08:10)
[2022-01-29] MEDS: Gabapentin 100 MG CAP PO SCH (08:10)
[2022-01-29] MEDS: Spironolactone 25 MG TAB PO SCH (08:10)
[2022-01-29] MEDS: metFORMIN 500 MG TAB PO SCH (08:10)
[2022-01-29] MEDS: Multivitamin W/ Minerals 1 TAB PO SCH (08:10)
[2022-01-29] MEDS: Ferrous Gluconate 324 MG TAB PO SCH (08:11)
[2022-01-29] MEDS: Furosemide 40 MG TAB PO SCH (08:11)
[2022-01-29] MEDS: HYDROcodone/Acetaminophen 10/325 mg Tablet PO PRN (08:11)
[2022-01-29] MEDS: Famotidine 20 MG TAB PO SCH (08:11)
[2022-01-29] MEDS: Apixaban 5 MG TAB PO SCH (08:11)
[2022-01-29] MEDS: Amiodarone 200 MG TAB PO SCH (08:11)
[2022-01-29] MEDS: Carvedilol 6.25 MG TAB PO SCH (08:12)
[2022-01-29] MEDS: Senokot S 8.6-50 MG TAB PO SCH (08:12)
[2022-01-29 08:33] VITALS: TEMP 98.4
[2022-01-29] MEDS ORDERED: Spironolactone 25 MG TAB PO SCH (09:00)
[2022-01-29] MEDS ORDERED: Carvedilol 6.25 MG TAB PO SCH (09:00)
[2022-01-29] MEDS ORDERED: Furosemide 40 MG TAB PO SCH (09:00)
[2022-01-29] MEDS ORDERED: Apixaban 5 MG TAB PO SCH (09:00)
[2022-01-29] MEDS ORDERED: Aspirin 81 mg Enteric Coated Tablet PO SCH (09:00)
[2022-01-29] MEDS ORDERED: Amiodarone 200 MG TAB PO SCH (09:00)
[2022-01-29 11:49] VITALS: BP 114/68
[2022-01-29] MEDS ORDERED: metFORMIN 500 MG TAB PO SCH (17:00)
[2022-01-29] MEDS ORDERED: Terazosin HCl 5 MG CAP PO SCH (21:00)
[2022-01-29] MEDS ORDERED: Atorvastatin Calcium 40 MG TAB PO SCH (21:00)
== END 2022-01-29 11:45 | disposition home or self-care (01) ==
LOC: SUATTDRO 17:41 → SDC 17:41 → SURG A 17:41 → SDC 01-28 09:38
PROVIDERS: ADMIT Orthopaedic Surgery; ATTEND Orthopaedic Surgery
PROC: 0SRD0J9 Replacement of Left Knee Joint with Synthetic Substitute, Cemented, Open Approach (ICD-10-PCS; principal; 2022-01-27)
PROC: 3E0T3BZ Introduction of Anesthetic Agent into Peripheral Nerves and Plexi, Percutaneous Approach (ICD-10-PCS; 2022-01-27)
DX: M17.12 Unilateral primary osteoarthritis, left knee (principal); E11.9 Type 2 diabetes mellitus without complications; I11.0 Hypertensive heart disease with heart failure; I50.9 Heart failure, unspecified; E78.5 Hyperlipidemia, unspecified; I42.8 Other cardiomyopathies; G25.0 Essential tremor; E66.01 Morbid (severe) obesity due to excess calories; Z68.41 Body mass index [BMI] 40.0-44.9, adult; Z87.891 Personal history of nicotine dependence; Z79.01 Long term (current) use of anticoagulants; Z79.82 Long term (current) use of aspirin; Z79.84 Long term (current) use of oral hypoglycemic drugs; Z79.899 Other long term (current) drug therapy; Z95.0 Presence of cardiac pacemaker; Z96.641 Presence of right artificial hip joint
CPT/HCPCS: 27447; 64448; 73560; 80048 ×2; 82962; 85025; 85027; 97110 ×3; 97116 ×3; 97139 ×3; 97530 ×2; C1713; C1776; J3370; 36415; 36416; G0378; J0171; J0690; J1815; J1885; J2175; J2250; J2405; J2704; J2795; J3010; J3490; S0020

== ENCOUNTER 2022-02-02 11:27 | Inpatient (IN) | payer MEDICARE ==
[2022-02-02 12:21] LABS: Hemoglobin 9.3 g/dL (14.0-18.0); Mean Corpuscular HGB CONC 32.4 g/dL (32.0-36.0); Mean Corpuscular Hemoglobin 31.3 pg (27.0-31.0); Mean Corpuscular Volume 96.6 fL (78.0-98.0); Mean Platelet Volume 8.8 fL (7.4-10.4); Platelet Count 266 thou/uL (130-400); RBC Distribution Width 12.6 % (11.5-14.5); Red Blood Cell (RBC) Count 2.97 mill/uL (4.70-6.10); White Blood Cell (WBC) Count 10.9 thou/uL (4.8-10.8)
[2022-02-02] MEDS ORDERED: Morphine 4 MG/ML VIAL ONE ×5 (12:26→23:10)
[2022-02-02 12:36] LABS: ALT (SGPT) 26 U/L (8-55); AST (SGOT) 21 U/L (5-34); Albumin 3.3 g/dL (3.4-4.8); Alkaline Phosphatase 55 U/L (40-110); Anion Gap 19 mmol/L (10-20); BUN (Urea Nitrogen) 83 mg/dL (8.4-25.7); Bilirubin, Total 0.7 mg/dL (0.2-1.2); Calc. Creatinine Clearance 0 mL/min (70-130); Calcium 8.8 mg/dL (7.8-10.44); Carbon Dioxide 19 mmol/L (23-31); Chloride 97 mmol/L (98-107); Globulin 3.8 g/dL (2.4-3.5); Glucose 170 mg/dL (80-115); Potassium 3.8 mmol/L (3.5-5.1); Protein, Total 7.1 g/dL (5.8-8.1); Sodium 131 mmol/L (136-145)
[2022-02-02 13:00] LABS: Band 16 % (5-11); Eosinophils 5 % (0-10); Lymphocytes 9 % (21-51); MDiff Complete? YES; Monocytes 12 % (0-10); Neutrophil 58 % (42-75); Platelet Morphology Comment Appears Adequate; Polychromasia SLIGHT = 2-3 cells (100X) (0-2/hpf)
[2022-02-02 13:01] LABS: Bilirubin Negative (Negative); Blood, Urine 3+ (Negative); Clarity Clear (Clear); Glucose, Urine (Dipstick) Normal (Negative); Ketone, Urine Negative (Negative); Leukocyte Negative Leu/uL (Negative); Nitrite Negative (Negative); Protein, Urine (Dipstick) Negative (Neg-Trace); Specific Gravity, Urine 1.014 (1.002-1.036); Squamous Epithelial None Seen HPF (0-3); Urobilinogen Normal mg/dL (Less than 2); WBC/HPF 0-3 HPF (0-3)
[2022-02-02 13:03] LABS: Bacteria/HPF 1+ HPF (None Seen)
[2022-02-02] MEDS ORDERED: Cefepime 2 GM VIAL ONE (13:25)
[2022-02-02] MEDS ORDERED: Vancomycin 1 GM/200 ML BAG ONE (14:19)
[2022-02-02] MEDS ORDERED: Dexamethasone 4 mg/ml Vial ONE (15:44)
[2022-02-02 16:08] LABS: Lactic Acid 1.2 mmol/L (0.5-2.2)
[2022-02-02] MEDS ORDERED: Lorazepam 2 MG/ML VIAL SLOW IVP SCH (16:30)
[2022-02-02] MEDS ORDERED: Morphine 4 MG/ML VIAL SLOW IVP SCH (16:30)
[2022-02-02] MEDS ORDERED: Lorazepam 2 MG/ML VIAL ONE (16:40)
[2022-02-02 17:56] LABS: SARS-CoV-2 NAA Rapid Test Not Detected (NotDetected)
[2022-02-02] MEDS ORDERED: Ondansetron ODT 4 MG TAB ONE (23:13)
[2022-02-03] MEDS ORDERED: Cefepime 2 GM VIAL ONE (03:39)
[2022-02-03 05:04] VITALS: BMI 44.7
[2022-02-03] MEDS ORDERED: Acetaminophen 325 MG TAB PO PRN (08:38)
[2022-02-03] MEDS ORDERED: Senokot S 8.6-50 MG TAB PO PRN (08:38)
[2022-02-03] MEDS ORDERED: Enoxaparin Sodium 40 MG/0.4 ML SYRINGE SC SCH (09:00)
[2022-02-03] MEDS: HYDROcodone/Acetaminophen 5/325 mg Tablet PO PRN ×3 (09:34→21:44)
[2022-02-03] MEDS: Famotidine 20 MG TAB PO SCH ×2 (09:34→21:41)
[2022-02-03] MEDS ORDERED: Lactated Ringer's 1,000 ML IV SCH (10:00)
[2022-02-03] MEDS ORDERED: Lorazepam 2 MG/ML VIAL SLOW IVP PRN (11:18)
[2022-02-03] MEDS: Lactated Ringer's 1,000 ML IV SCH ×2 (14:33→21:38)
[2022-02-03] MEDS ORDERED: Heparin 5,000 UNITS/ML VIAL SC SCH (15:00)
[2022-02-03] MEDS: Carvedilol 6.25 MG TAB PO SCH (21:40)
[2022-02-03] MEDS: Atorvastatin Calcium 20 MG TAB PO SCH (21:40)
[2022-02-03] MEDS: Spironolactone 25 MG TAB PO SCH (21:41)
[2022-02-03] MEDS: Terazosin HCl 5 MG CAP PO SCH (21:41)
[2022-02-04] MEDS: Lactated Ringer's 1,000 ML IV SCH ×4 (01:43→20:56)
[2022-02-04 05:44] LABS: Hemoglobin 8.4 g/dL (14.0-18.0); Mean Corpuscular HGB CONC 31.9 g/dL (32.0-36.0); Mean Corpuscular Hemoglobin 31.7 pg (27.0-31.0); Mean Corpuscular Volume 99.4 fL (78.0-98.0); Mean Platelet Volume 8.1 fL (7.4-10.4); Platelet Count 315 thou/uL (130-400); RBC Distribution Width 12.7 % (11.5-14.5); Red Blood Cell (RBC) Count 2.64 mill/uL (4.70-6.10)
[2022-02-04] MEDS: HYDROcodone/Acetaminophen 5/325 mg Tablet PO PRN ×3 (05:46→21:41)
[2022-02-04 06:17] LABS: Band 3 % (5-11); Eosinophils 1 % (0-10); Lymphocytes 15 % (21-51); MDiff Complete? YES; Monocytes 10 % (0-10); Neutrophil 71 % (42-75)
[2022-02-04 06:22] LABS: Anion Gap 13 mmol/L (10-20); BUN (Urea Nitrogen) 39 mg/dL (8.4-25.7); Calc. Creatinine Clearance 152 mL/min (70-130); Calcium 8.6 mg/dL (7.8-10.44); Carbon Dioxide 26 mmol/L (23-31); Chloride 108 mmol/L (98-107); Glucose 188 mg/dL (80-115); Sodium 143 mmol/L (136-145)
[2022-02-04] MEDS: Carvedilol 6.25 MG TAB PO SCH ×2 (07:46→20:48)
[2022-02-04] MEDS ORDERED: fentaNYL Citrate/PF 100 MCG/2 ML SYRINGE ONE ×3 (08:25→12:08)
[2022-02-04] MEDS ORDERED: Bupivacaine PF 0.5% 30 ML VIAL ONE (08:28)
[2022-02-04] MEDS ORDERED: Thrombin 5000 UNITS/5 ML VIAL ONE (08:28)
[2022-02-04] MEDS ORDERED: EPINEPHrine 1 MG/ML AMP ONE (08:28)
[2022-02-04] MEDS: Spironolactone 25 MG TAB PO SCH ×2 (09:04→20:51)
[2022-02-04] MEDS: Famotidine 20 MG TAB PO SCH ×2 (09:04→20:50)
[2022-02-04] MEDS ORDERED: HYDROmorphone 2 MG/ML VIAL ONE (09:10)
[2022-02-04] MEDS ORDERED: Midazolam HCl 2 mg/2 ml Vial ONE (09:10)
[2022-02-04] MEDS ORDERED: Ketamine 50 MG/ML (10ML VIAL) ONE (09:10)
[2022-02-04] MEDS ORDERED: SUGAMMADEX SODIUM 200 MG/2 ML VIAL ONE ×2 (09:32→10:38)
[2022-02-04] MEDS ORDERED: PROPOFOL 20 ML ONE (09:32)
[2022-02-04] MEDS ORDERED: Ondansetron PF 4 MG/2 ML Vial ONE (09:41)
[2022-02-04] MEDS ORDERED: Lidocaine 1% PF 5 ML VIAL ONE (09:41)
[2022-02-04] MEDS ORDERED: Dexamethasone 20 MG/5 ML VIAL ONE (09:41)
[2022-02-04] MEDS ORDERED: Succinylcholine 200 MG/10 ml SYRINGE FS ONE (09:41)
[2022-02-04] MEDS ORDERED: ePHEDrine 50 MG/ML VIAL ONE (09:41)
[2022-02-04] MEDS ORDERED: PHENYLEPHRINE-NS 100 MCG/ML 10 ML SYRINGE ONE (09:41)
[2022-02-04] MEDS ORDERED: PROPOFOL 200 MG/20 ML VIAL ONE (09:41)
[2022-02-04] MEDS ORDERED: Rocuronium Bromide 10 MG/ML (10ML VIAL) ONE (09:41)
[2022-02-04] MEDS ORDERED: Morphine 2 MG/ML VIAL SLOW IVP PRN (11:46)
[2022-02-04] MEDS ORDERED: traMADol HCl 50 MG TAB PO PRN (11:46)
[2022-02-04] MEDS ORDERED: Promethazine HCl 25 MG/ML VIAL IM PRN (11:53)
[2022-02-04] MEDS ORDERED: Promethazine HCl 25 MG/ML VIAL IVPB PRN (11:53)
[2022-02-04] MEDS ORDERED: Meperidine HCl/PF 25 MG/ML VIAL SLOW IVP PRN (11:53)
[2022-02-04] MEDS ORDERED: Ondansetron HCl/PF 4 MG/2 ML Vial IVP PRN (11:53)
[2022-02-04] MEDS ORDERED: HYDROmorphone 2 MG/ML VIAL SLOW IVP PRN (11:53)
[2022-02-04] MEDS: CEFAZOLIN 2 GM in Sodium Chloride 0.9% 100 ML IVPB SCH ×2 (13:16→20:46)
[2022-02-04] MEDS: Sodium Chloride 0.9% 1,000 ML IV SCH ×2 (13:17→20:47)
[2022-02-04] MEDS ORDERED: HumaLOG 300 UNITS/3 ML VIAL SC PRN (14:14)
[2022-02-04] MEDS ORDERED: Dextrose 5% in Water 1,000 ML IV PRN (14:14)
[2022-02-04] MEDS ORDERED: Dextrose 50% Abboject 50 ML SYRINGE SLOW IVP PRN (14:14)
[2022-02-04] MEDS: Furosemide 40 MG TAB PO SCH (14:31)
[2022-02-04] MEDS: Amiodarone 200 MG TAB PO SCH (14:32)
[2022-02-04] MEDS: Atorvastatin Calcium 20 MG TAB PO SCH (20:48)
[2022-02-04] MEDS: Terazosin HCl 5 MG CAP PO SCH (20:51)
[2022-02-05] MEDS: HYDROcodone/Acetaminophen 5/325 mg Tablet PO PRN ×4 (03:46→20:35)
[2022-02-05 06:55] LABS: Hemoglobin 8.1 g/dL (14.0-18.0); Hypochromia SLIGHT = 6-15 cells (100X) (0-5/hpf); Lymphocytes 13 % (21-51); MDiff Complete? YES; Macrocytosis SLIGHT = 6-15 cells (100X) (0-5/hpf); Mean Corpuscular HGB CONC 31.8 g/dL (32.0-36.0); Mean Corpuscular Hemoglobin 31.8 pg (27.0-31.0); Mean Corpuscular Volume 99.9 fL (78.0-98.0); Metamyelocyte 1 % (0-0); Monocytes 12 % (0-10); Myelocyte 1 % (0-0); Neutrophil 73 % (42-75); Platelet Count 342 thou/uL (130-400); Platelet Morphology Comment Appears Adequate; Polychromasia SLIGHT = 2-3 cells (100X) (0-2/hpf); RBC Distribution Width 12.4 % (11.5-14.5); Red Blood Cell (RBC) Count 2.56 mill/uL (4.70-6.10); White Blood Cell (WBC) Count 11.5 thou/uL (4.8-10.8)
[2022-02-05 06:58] LABS: Anion Gap 13 mmol/L (10-20); BUN (Urea Nitrogen) 29 mg/dL (8.4-25.7); Calc. Creatinine Clearance 189 mL/min (70-130); Calcium 8.5 mg/dL (7.8-10.44); Carbon Dioxide 25 mmol/L (23-31); Chloride 108 mmol/L (98-107); Glucose 188 mg/dL (80-115); Potassium 4.1 mmol/L (3.5-5.1); Sodium 142 mmol/L (136-145)
[2022-02-05] MEDS: Famotidine 20 MG TAB PO SCH ×2 (08:26→20:32)
[2022-02-05] MEDS: Spironolactone 25 MG TAB PO SCH ×2 (08:26→20:32)
[2022-02-05] MEDS: Furosemide 40 MG TAB PO SCH (08:26)
[2022-02-05] MEDS: Carvedilol 6.25 MG TAB PO SCH ×2 (08:26→20:34)
[2022-02-05] MEDS: Amiodarone 200 MG TAB PO SCH (08:26)
[2022-02-05] MEDS: Sodium Chloride 0.9% 1,000 ML IV SCH (13:28)
[2022-02-05] MEDS: metFORMIN 500 MG TAB PO SCH (17:07)
[2022-02-05] MEDS: Atorvastatin Calcium 20 MG TAB PO SCH (20:32)
[2022-02-05] MEDS: Terazosin HCl 5 MG CAP PO SCH (20:34)
[2022-02-06] MEDS: Sodium Chloride 0.9% 1,000 ML IV SCH ×2 (04:04→19:07)
[2022-02-06] MEDS: HYDROcodone/Acetaminophen 5/325 mg Tablet PO PRN ×2 (04:38→20:23)
[2022-02-06 06:17] LABS: #Eosinphils 0.2 thou/uL (0.0-0.7); #Lymphocytes 1.3 thou/uL (1.20-3.40); #Monocytes 1.2 thou/uL (0.11-0.59); #Neutrophils 6.9 thou/uL (1.40-6.50); %Basophils 0.2 % (0.0-1.0); %Eosinophils 1.8 % (0.0-10.0); %Lymphocytes 13.4 % (21.0-51.0); %Monocytes 12.9 % (0.0-10.0); %Neutrophils 71.8 % (42.0-75.0); Hemoglobin 8.4 g/dL (14.0-18.0); Mean Corpuscular HGB CONC 31.1 g/dL (32.0-36.0); Mean Corpuscular Hemoglobin 31.2 pg (27.0-31.0); Mean Platelet Volume 7.3 fL (7.4-10.4); Platelet Count 304 thou/uL (130-400); RBC Distribution Width 12.7 % (11.5-14.5); White Blood Cell (WBC) Count 9.6 thou/uL (4.8-10.8)
[2022-02-06 06:32] LABS: Anion Gap 14 mmol/L (10-20); BUN (Urea Nitrogen) 25 mg/dL (8.4-25.7); Calc. Creatinine Clearance 175 mL/min (70-130); Calcium 8.4 mg/dL (7.8-10.44); Carbon Dioxide 29 mmol/L (23-31); Chloride 105 mmol/L (98-107); Glucose 190 mg/dL (80-115); Potassium 3.9 mmol/L (3.5-5.1); Sodium 144 mmol/L (136-145)
[2022-02-06] MEDS: metFORMIN 500 MG TAB PO SCH (08:49)
[2022-02-06] MEDS: Famotidine 20 MG TAB PO SCH ×2 (08:50→20:18)
[2022-02-06] MEDS: Furosemide 40 MG TAB PO SCH (08:50)
[2022-02-06] MEDS: Amiodarone 200 MG TAB PO SCH (08:50)
[2022-02-06] MEDS: Carvedilol 6.25 MG TAB PO SCH ×2 (08:50→20:18)
[2022-02-06] MEDS: Spironolactone 25 MG TAB PO SCH ×2 (09:02→20:19)
[2022-02-06] MEDS: Atorvastatin Calcium 20 MG TAB PO SCH (20:19)
[2022-02-06] MEDS: Terazosin HCl 5 MG CAP PO SCH (20:19)
[2022-02-06] MEDS: Enoxaparin Sodium 40 MG/0.4 ML SYRINGE SC SCH (20:20)
[2022-02-07] MEDS: Sodium Chloride 0.9% 1,000 ML IV SCH ×2 (05:24→19:46)
[2022-02-07] MEDS: HYDROcodone/Acetaminophen 5/325 mg Tablet PO PRN ×3 (10:17→21:01)
[2022-02-07] MEDS: Carvedilol 6.25 MG TAB PO SCH ×2 (10:19→21:02)
[2022-02-07] MEDS: Famotidine 20 MG TAB PO SCH ×2 (10:19→21:03)
[2022-02-07] MEDS: Spironolactone 25 MG TAB PO SCH ×2 (10:19→21:01)
[2022-02-07] MEDS: Amiodarone 200 MG TAB PO SCH (10:20)
[2022-02-07] MEDS: Furosemide 40 MG TAB PO SCH (10:20)
[2022-02-07] MEDS: Terazosin HCl 5 MG CAP PO SCH (21:01)
[2022-02-07] MEDS: Enoxaparin Sodium 40 MG/0.4 ML SYRINGE SC SCH (21:03)
[2022-02-07] MEDS: Atorvastatin Calcium 20 MG TAB PO SCH (21:03)
[2022-02-08] MEDS: HYDROcodone/Acetaminophen 5/325 mg Tablet PO PRN ×4 (03:18→20:40)
[2022-02-08] MEDS: Carvedilol 6.25 MG TAB PO SCH ×2 (08:53→20:40)
[2022-02-08] MEDS: Furosemide 40 MG TAB PO SCH (08:53)
[2022-02-08] MEDS: Amiodarone 200 MG TAB PO SCH (08:53)
[2022-02-08] MEDS: Spironolactone 25 MG TAB PO SCH ×2 (08:53→20:39)
[2022-02-08] MEDS: Famotidine 20 MG TAB PO SCH ×2 (08:54→20:40)
[2022-02-08] MEDS: Sodium Chloride 0.9% 1,000 ML IV SCH ×2 (10:07→23:23)
[2022-02-08] MEDS: Enoxaparin Sodium 40 MG/0.4 ML SYRINGE SC SCH (20:37)
[2022-02-08] MEDS: Terazosin HCl 5 MG CAP PO SCH (20:39)
[2022-02-08] MEDS: Atorvastatin Calcium 20 MG TAB PO SCH (20:39)
[2022-02-08] MEDS ORDERED: Pantoprazole 40 MG VIAL IVP SCH (22:15)
[2022-02-09] MEDS: Amiodarone 200 MG TAB PO SCH (08:47)
[2022-02-09] MEDS: Carvedilol 6.25 MG TAB PO SCH ×2 (08:47→21:35)
[2022-02-09] MEDS: Spironolactone 25 MG TAB PO SCH ×2 (08:47→21:35)
[2022-02-09] MEDS: Furosemide 40 MG TAB PO SCH (08:48)
[2022-02-09] MEDS: Pantoprazole 40 MG VIAL IVP SCH ×2 (08:48→21:37)
[2022-02-09] MEDS: HYDROcodone/Acetaminophen 5/325 mg Tablet PO PRN ×2 (08:49→21:35)
[2022-02-09 08:55] LABS: #Eosinphils 0.3 thou/uL (0.0-0.7); #Lymphocytes 1.4 thou/uL (1.20-3.40); #Neutrophils 10.2 thou/uL (1.40-6.50); %Eosinophils 2.4 % (0.0-10.0); %Lymphocytes 10.9 % (21.0-51.0); %Monocytes 7.8 % (0.0-10.0); %Neutrophils 78.9 % (42.0-75.0); Hemoglobin 9.2 g/dL (14.0-18.0); Mean Corpuscular HGB CONC 31.2 g/dL (32.0-36.0); Mean Corpuscular Hemoglobin 30.7 pg (27.0-31.0); Mean Corpuscular Volume 98.5 fL (78.0-98.0); Mean Platelet Volume 7.9 fL (7.4-10.4); Platelet Count 307 thou/uL (130-400); RBC Distribution Width 12.8 % (11.5-14.5); White Blood Cell (WBC) Count 12.9 thou/uL (4.8-10.8)
[2022-02-09 09:10] LABS: Anion Gap 12 mmol/L (10-20); BUN (Urea Nitrogen) 27 mg/dL (8.4-25.7); Calc. Creatinine Clearance 134 mL/min (70-130); Calcium 8.7 mg/dL (7.8-10.44); Carbon Dioxide 32 mmol/L (23-31); Chloride 102 mmol/L (98-107); Estimated GFR 66; Glucose 185 mg/dL (80-115); Potassium 3.9 mmol/L (3.5-5.1); Sodium 142 mmol/L (136-145)
[2022-02-09] MEDS: Sodium Chloride 0.9% 1,000 ML IV SCH (10:45)
[2022-02-09] MEDS ORDERED: Cyclobenzaprine 10 MG TAB PO SCH (12:15)
[2022-02-09] MEDS ORDERED: Gabapentin 300 MG CAP PO SCH (12:15)
[2022-02-09] MEDS: Terazosin HCl 5 MG CAP PO SCH (21:34)
[2022-02-09] MEDS: Atorvastatin Calcium 20 MG TAB PO SCH (21:35)
[2022-02-09] MEDS: Gabapentin 300 MG CAP PO SCH (21:36)
[2022-02-09] MEDS: Cyclobenzaprine 10 MG TAB PO PRN (21:36)
[2022-02-09] MEDS: Enoxaparin Sodium 40 MG/0.4 ML SYRINGE SC SCH (21:36)
[2022-02-10 06:09] LABS: #Eosinphils 0.3 thou/uL (0.0-0.7); #Lymphocytes 1.5 thou/uL (1.20-3.40); #Monocytes 1.1 thou/uL (0.11-0.59); #Neutrophils 8.5 thou/uL (1.40-6.50); %Basophils 0.2 % (0.0-1.0); %Eosinophils 2.6 % (0.0-10.0); %Monocytes 9.6 % (0.0-10.0); %Neutrophils 74.6 % (42.0-75.0); Hemoglobin 8.9 g/dL (14.0-18.0); Mean Corpuscular HGB CONC 31.9 g/dL (32.0-36.0); Mean Corpuscular Hemoglobin 31.5 pg (27.0-31.0); Mean Corpuscular Volume 98.7 fL (78.0-98.0); Mean Platelet Volume 8.2 fL (7.4-10.4); Platelet Count 261 thou/uL (130-400); RBC Distribution Width 12.7 % (11.5-14.5); Red Blood Cell (RBC) Count 2.81 mill/uL (4.70-6.10); White Blood Cell (WBC) Count 11.4 thou/uL (4.8-10.8)
[2022-02-10 06:43] LABS: Anion Gap 16 mmol/L (10-20); BUN (Urea Nitrogen) 29 mg/dL (8.4-25.7); Calc. Creatinine Clearance 134 mL/min (70-130); Calcium 8.4 mg/dL (7.8-10.44); Carbon Dioxide 25 mmol/L (23-31); Chloride 102 mmol/L (98-107); Estimated GFR 66; Glucose 162 mg/dL (80-115); Potassium 3.9 mmol/L (3.5-5.1); Sodium 139 mmol/L (136-145)
[2022-02-10] MEDS: Carvedilol 6.25 MG TAB PO SCH ×2 (09:33→20:49)
[2022-02-10] MEDS: Gabapentin 300 MG CAP PO SCH ×2 (09:34→20:49)
[2022-02-10] MEDS: Amiodarone 200 MG TAB PO SCH (09:34)
[2022-02-10] MEDS: Furosemide 40 MG TAB PO SCH (09:34)
[2022-02-10] MEDS: Spironolactone 25 MG TAB PO SCH ×2 (09:34→20:49)
[2022-02-10] MEDS: Pantoprazole 40 MG VIAL IVP SCH ×2 (09:35→20:58)
[2022-02-10] MEDS: HYDROcodone/Acetaminophen 5/325 mg Tablet PO PRN ×2 (09:46→20:59)
[2022-02-10] MEDS: metFORMIN 500 MG TAB PO SCH (17:03)
[2022-02-10] MEDS: Cyclobenzaprine 10 MG TAB PO PRN (20:49)
[2022-02-10] MEDS: Terazosin HCl 5 MG CAP PO SCH (20:49)
[2022-02-10] MEDS: Atorvastatin Calcium 20 MG TAB PO SCH (20:50)
[2022-02-10] MEDS: Enoxaparin Sodium 40 MG/0.4 ML SYRINGE SC SCH (20:58)
[2022-02-11] MEDS: metFORMIN 500 MG TAB PO SCH ×2 (09:19→18:07)
[2022-02-11] MEDS: Carvedilol 6.25 MG TAB PO SCH ×2 (09:20→21:36)
[2022-02-11] MEDS: Amiodarone 200 MG TAB PO SCH (09:20)
[2022-02-11] MEDS: Furosemide 40 MG TAB PO SCH (09:22)
[2022-02-11] MEDS: Gabapentin 300 MG CAP PO SCH ×3 (09:22→21:37)
[2022-02-11] MEDS: HYDROcodone/Acetaminophen 5/325 mg Tablet PO PRN ×3 (09:26→21:36)
[2022-02-11] MEDS: Spironolactone 25 MG TAB PO SCH ×2 (09:26→21:36)
[2022-02-11] MEDS: Pantoprazole 40 MG VIAL IVP SCH ×2 (09:29→21:38)
[2022-02-11] MEDS: Terazosin HCl 5 MG CAP PO SCH (21:35)
[2022-02-11] MEDS: Cyclobenzaprine 10 MG TAB PO PRN (21:35)
[2022-02-11] MEDS: Enoxaparin Sodium 40 MG/0.4 ML SYRINGE SC SCH (21:35)
[2022-02-11] MEDS: Atorvastatin Calcium 20 MG TAB PO SCH (21:37)
[2022-02-12] MEDS: Furosemide 40 MG TAB PO SCH (09:20)
[2022-02-12] MEDS: Gabapentin 300 MG CAP PO SCH ×3 (09:21→21:48)
[2022-02-12] MEDS: HYDROcodone/Acetaminophen 5/325 mg Tablet PO PRN ×3 (09:22→19:30)
[2022-02-12] MEDS: Amiodarone 200 MG TAB PO SCH (09:24)
[2022-02-12] MEDS: Spironolactone 25 MG TAB PO SCH ×2 (09:25→21:48)
[2022-02-12] MEDS: Pantoprazole 40 MG VIAL IVP SCH ×2 (09:26→21:47)
[2022-02-12] MEDS: metFORMIN 500 MG TAB PO SCH ×2 (09:33→17:14)
[2022-02-12] MEDS: Carvedilol 6.25 MG TAB PO SCH ×2 (09:34→21:49)
[2022-02-12 11:56] VITALS: TEMP 98
[2022-02-12] MEDS: Cephalexin 250 MG CAP PO SCH ×3 (13:50→21:49)
[2022-02-12] MEDS: Terazosin HCl 5 MG CAP PO SCH (21:47)
[2022-02-12] MEDS: Atorvastatin Calcium 20 MG TAB PO SCH (21:49)
[2022-02-12] MEDS: Enoxaparin Sodium 40 MG/0.4 ML SYRINGE SC SCH (21:49)
[2022-02-12 21:52] VITALS: BP 146/64
== END 2022-02-12 22:15 | DRG 519 ==
LOC: ERS 11:27 → INTOOBSV 16:19 → NEURO 16:19 → SURG A 02-03 13:00 → OBSVTOIN 02-05 13:09
PROVIDERS: ADMIT Internal Medicine; ATTEND Internal Medicine
PROC: 00NY0ZZ Release Lumbar Spinal Cord, Open Approach (ICD-10-PCS; principal; 2022-02-04)
DX: M48.061 Spinal stenosis, lumbar region without neurogenic claudication (principal); Z20.822 Contact with and (suspected) exposure to COVID-19; G83.4 Cauda equina syndrome; Z68.41 Body mass index [BMI] 40.0-44.9, adult; I50.32 Chronic diastolic (congestive) heart failure; E11.9 Type 2 diabetes mellitus without complications; E78.5 Hyperlipidemia, unspecified; I11.0 Hypertensive heart disease with heart failure; G51.0 Bell's palsy; Z96.641 Presence of right artificial hip joint; Z96.651 Presence of right artificial knee joint; I49.5 Sick sinus syndrome; E66.01 Morbid (severe) obesity due to excess calories; I48.0 Paroxysmal atrial fibrillation; R15.9 Full incontinence of feces; N40.1 Benign prostatic hyperplasia with lower urinary tract symptoms; N39.498 Other specified urinary incontinence; Z95.0 Presence of cardiac pacemaker; Z98.890 Other specified postprocedural states; Z79.899 Other long term (current) drug therapy; Z88.8 Allergy status to other drugs, medicaments and biological substances; Z79.84 Long term (current) use of oral hypoglycemic drugs; Z79.82 Long term (current) use of aspirin; Z79.01 Long term (current) use of anticoagulants; Z90.89 Acquired absence of other organs; Z87.891 Personal history of nicotine dependence
CPT/HCPCS: 36415; 36416; 51702; 72131; 72192; 76000; 80048; 80053; 81003; 81015; 83605; 85025; 85652; 87040; 87086; 96365; 96366; 96367; 96375; 96376; 97139; C9113; G0378; J0171; J0690; J0692; J1100; J1170; J1650; J1815; J2060; J2250; J2270; J2405; J2704; J3370; J3490; J7050; J7120; Q0162; S0020; U0002; U0003; U0005

== ENCOUNTER 2022-02-13 18:59 | Inpatient (IN) | payer MEDICARE ==
[2022-02-13 19:44] LABS: Hemoglobin 8.3 g/dL (14.0-18.0); Mean Corpuscular HGB CONC 31.3 g/dL (32.0-36.0); Mean Corpuscular Hemoglobin 30.3 pg (27.0-31.0); Mean Corpuscular Volume 96.8 fL (78.0-98.0); Mean Platelet Volume 9.8 fL (7.4-10.4); Platelet Count 205 thou/uL (130-400); RBC Distribution Width 13.1 % (11.5-14.5); Red Blood Cell (RBC) Count 2.72 mill/uL (4.70-6.10); White Blood Cell (WBC) Count 29.8 thou/uL (4.8-10.8)
[2022-02-13 19:59] LABS: Band 7 % (5-11); Lymphocytes 1 % (21-51); MDiff Complete? YES; Monocytes 11 % (0-10); Neutrophil 80 % (42-75); Platelet Morphology Comment Appears Adequate; Polychromasia SLIGHT = 2-3 cells (100X) (0-2/hpf)
[2022-02-13 20:04] LABS: ALT (SGPT) 8 U/L (8-55); AST (SGOT) 12 U/L (5-34); Albumin 2.9 g/dL (3.4-4.8); Alkaline Phosphatase 57 U/L (40-110); Anion Gap 16 mmol/L (10-20); BUN (Urea Nitrogen) 51 mg/dL (8.4-25.7); Bilirubin, Total 1.4 mg/dL (0.2-1.2); Calc. Creatinine Clearance 0 mL/min (70-130); Calcium 8.2 mg/dL (7.8-10.44); Carbon Dioxide 23 mmol/L (23-31); Chloride 98 mmol/L (98-107); Estimated GFR 25; Glucose 166 mg/dL (80-115); Potassium 4.5 mmol/L (3.5-5.1); Protein, Total 5.9 g/dL (5.8-8.1); Sodium 132 mmol/L (136-145)
[2022-02-13 20:25] LABS: CKMB 1.2 ng/mL (0-6.6)
[2022-02-13] MEDS ORDERED: Vancomycin 1 GM/200 ML BAG ONE (21:09)
[2022-02-13] MEDS ORDERED: Piperacillin/Tazobactam 3.375 GM VIAL ONE (21:09)
[2022-02-13 21:12] LABS: SARS-CoV-2 NAA Rapid Test Not Detected (NotDetected)
[2022-02-13 21:47] LABS: Bilirubin Negative (Negative); Blood, Urine Negative (Negative); Glucose, Urine (Dipstick) Negative (Negative); Ketone, Urine Negative (Negative); Leukocyte Negative (Negative); Nitrite Negative (Negative); Protein, Urine (Dipstick) Negative (Neg-Trace); Urobilinogen 0.2 mg/dL (Less than 2); pH, Urine 5.5 (5.0-9.0)
[2022-02-13 21:52] LABS: Clarity Clear (Clear)
[2022-02-13] MEDS ORDERED: Dextrose 5% in Water 1,000 ML IV PRN (22:07)
[2022-02-13] MEDS ORDERED: Bisacodyl 5 MG TAB PO PRN (22:07)
[2022-02-13] MEDS ORDERED: HumaLOG 300 UNITS/3 ML VIAL SC PRN ×2 (22:07)
[2022-02-13] MEDS ORDERED: Dextrose 50% Abboject 50 ML SYRINGE SLOW IVP PRN (22:07)
[2022-02-13] MEDS ORDERED: Norepinephrine 8 MG/0.9% NS 250 ML IVPB SCH (22:15)
[2022-02-13] MEDS ORDERED: Norepinephrine 4 MG/4 ML VIAL ONE (22:52)
[2022-02-13] MEDS ORDERED: Norepinephrine 8 MG/0.9% NS 250 ML ONE (22:53)
[2022-02-14] MEDS: Sodium Chloride 0.9% 1,000 ML IV SCH ×3 (01:08→21:27)
[2022-02-14] MEDS ORDERED: Heparin 10,000 UNITS/ 10 ML VIAL ONE (01:18)
[2022-02-14] MEDS: Heparin 5,000 UNITS/ML VIAL SC SCH ×4 (01:39→21:27)
[2022-02-14] MEDS ORDERED: Vancomycin 1 GM in Premix Bag 1 BAG IVPB SCH (03:00)
[2022-02-14 08:08] LABS: ALT (SGPT) 9 U/L (8-55); AST (SGOT) 12 U/L (5-34); Albumin 2.7 g/dL (3.4-4.8); Alkaline Phosphatase 58 U/L (40-110); Anion Gap 15 mmol/L (10-20); BUN (Urea Nitrogen) 52 mg/dL (8.4-25.7); Bilirubin, Total 1.1 mg/dL (0.2-1.2); Calc. Creatinine Clearance 65 mL/min (70-130); Carbon Dioxide 24 mmol/L (23-31); Chloride 102 mmol/L (98-107); Estimated GFR 28; Glucose 122 mg/dL (80-115); Potassium 4.2 mmol/L (3.5-5.1); Protein, Total 5.7 g/dL (5.8-8.1); Sodium 137 mmol/L (136-145)
[2022-02-14 08:51] LABS: Band 22 % (5-11); Lymphocytes 1 % (21-51); MDiff Complete? YES; Mean Corpuscular HGB CONC 31.9 g/dL (32.0-36.0); Mean Corpuscular Hemoglobin 30.9 pg (27.0-31.0); Mean Corpuscular Volume 96.9 fL (78.0-98.0); Mean Platelet Volume 9.3 fL (7.4-10.4); Monocytes 11 % (0-10); Neutrophil 65 % (42-75); Platelet Count 187 thou/uL (130-400); Platelet Morphology Comment Appears Adequate; Polychromasia SLIGHT = 2-3 cells (100X) (0-2/hpf); RBC Distribution Width 12.9 % (11.5-14.5); Reactive Lymphocytes 1 % (0-10); Red Blood Cell (RBC) Count 2.59 mill/uL (4.70-6.10); White Blood Cell (WBC) Count 26.1 thou/uL (4.8-10.8)
[2022-02-14] MEDS: Amiodarone 200 MG TAB PO SCH (08:58)
[2022-02-14] MEDS: Famotidine/PF 20 mg/2ml Vial SLOW IVP SCH (08:58)
[2022-02-14] MEDS ORDERED: Aspirin Chewable 81 MG TAB PO SCH (09:00)
[2022-02-14] MEDS: Cefepime 2 GM VIAL IVPB SCH ×2 (09:00→13:50)
[2022-02-14 09:34] LABS: Bacteria/HPF Rare-Few HPF (None Seen); RBC/HPF 0-3 HPF (0-3); Squamous Epithelial 0-3 HPF (0-3)
[2022-02-14 10:25] LABS: Protein, Urine Random Quant Less than 10 mg/dL (1-14); Sodium, Urine 65 mmol/L (Not Available); Urea Nitrogen, Random Urine 390 mg/dl
[2022-02-14] MEDS: Acetaminophen 325 MG TAB PO PRN ×2 (17:14→21:39)
[2022-02-14] MEDS ORDERED: Vancomycin 1.5 GRAM/300 ML BAG 1.5 GM in Premix Bag 1 BAG IVPB SCH (21:00)
[2022-02-15] MEDS: Cefepime 2 GM VIAL IVPB SCH ×2 (00:33→13:33)
[2022-02-15 08:48] LABS: Anion Gap 15 mmol/L (10-20); BUN (Urea Nitrogen) 28 mg/dL (8.4-25.7); Calc. Creatinine Clearance 137 mL/min (70-130); Calcium 8.3 mg/dL (7.8-10.44); Carbon Dioxide 21 mmol/L (23-31); Chloride 109 mmol/L (98-107); Estimated GFR 69; Glucose 102 mg/dL (80-115); Potassium 3.7 mmol/L (3.5-5.1); Sodium 141 mmol/L (136-145)
[2022-02-15] MEDS ORDERED: Lactated Ringer's 1,000 ML IV SCH (09:00)
[2022-02-15] MEDS ORDERED: Ketamine 50 MG/ML (10ML VIAL) ONE (09:55)
[2022-02-15] MEDS ORDERED: Midazolam HCl 2 mg/2 ml Vial ONE (09:55)
[2022-02-15] MEDS ORDERED: HYDROmorphone 2 MG/ML VIAL ONE (09:55)
[2022-02-15] MEDS ORDERED: fentaNYL Citrate/PF 100 MCG/2 ML SYRINGE ONE (09:55)
[2022-02-15 09:56] LABS: Band 20 % (5-11); Hemoglobin 7.6 g/dL (14.0-18.0); Hypochromia SLIGHT = 6-15 cells (100X) (0-5/hpf); Lymphocytes 2 % (21-51); MDiff Complete? YES; Mean Corpuscular HGB CONC 30.7 g/dL (32.0-36.0); Mean Corpuscular Hemoglobin 30.5 pg (27.0-31.0); Mean Corpuscular Volume 99.3 fL (78.0-98.0); Mean Platelet Volume 10.5 fL (7.4-10.4); Monocytes 11 % (0-10); Neutrophil 67 % (42-75); Platelet Count 184 thou/uL (130-400); Platelet Morphology Comment Appears Adequate; Polychromasia SLIGHT = 2-3 cells (100X) (0-2/hpf); Red Blood Cell (RBC) Count 2.49 mill/uL (4.70-6.10); White Blood Cell (WBC) Count 17.8 thou/uL (4.8-10.8)
[2022-02-15] MEDS: Heparin 5,000 UNITS/ML VIAL SC SCH (09:57)
[2022-02-15] MEDS: Famotidine/PF 20 mg/2ml Vial SLOW IVP SCH ×2 (09:59→21:15)
[2022-02-15] MEDS: Amiodarone 200 MG TAB PO SCH (09:59)
[2022-02-15] MEDS: Sodium Chloride 0.9% 1,000 ML IV SCH (10:00)
[2022-02-15] MEDS ORDERED: Neomycin-Polymyxin 1 ML AMP ONE (10:10)
[2022-02-15] MEDS ORDERED: Dexamethasone 20 MG/5 ML VIAL ONE (10:35)
[2022-02-15] MEDS ORDERED: ePHEDrine 50 MG/ML VIAL ONE (10:35)
[2022-02-15] MEDS ORDERED: Succinylcholine 200 MG/10 ml SYRINGE FS ONE (10:35)
[2022-02-15] MEDS ORDERED: Lidocaine 1% PF 5 ML VIAL ONE (10:35)
[2022-02-15] MEDS ORDERED: PROPOFOL 200 MG/20 ML VIAL ONE (10:35)
[2022-02-15] MEDS ORDERED: Ondansetron PF 4 MG/2 ML Vial ONE (10:35)
[2022-02-15] MEDS ORDERED: PHENYLEPHRINE-NS 100 MCG/ML 10 ML SYRINGE ONE (10:35)
[2022-02-15] MEDS ORDERED: Promethazine HCl 25 MG/ML VIAL IVPB PRN (11:52)
[2022-02-15] MEDS ORDERED: Promethazine HCl 25 MG/ML VIAL IM PRN (11:52)
[2022-02-15] MEDS ORDERED: Meperidine HCl/PF 25 MG/ML VIAL SLOW IVP PRN (11:52)
[2022-02-15] MEDS ORDERED: HYDROmorphone 2 MG/ML VIAL SLOW IVP PRN (11:52)
[2022-02-15] MEDS ORDERED: Ondansetron HCl/PF 4 MG/2 ML Vial IVP PRN (11:52)
[2022-02-15] MEDS ORDERED: HYDROmorphone 0.5 MG/0.5 ML SYRINGE ONE (12:04)
[2022-02-15] MEDS: Acetaminophen/Codeine 30-300mg Tablet PO PRN ×2 (13:32→21:15)
[2022-02-15] MEDS: Albumin 25% 25 GM/100 ML BOT IVPB SCH ×2 (13:33→21:16)
[2022-02-15 14:21] LABS: Iron 15 ug/dL (65-175); Iron Binding Capacity, Total 148 mcg/dL (261-462)
[2022-02-15] MEDS: Morphine 2 MG/ML VIAL SLOW IVP PRN (15:54)
[2022-02-15] MEDS: tiZANidine HCl 4 MG TAB PO PRN (21:15)
[2022-02-15 21:23] LABS: Vancomycin, Trough 9.5 ug/mL
[2022-02-16] MEDS: Cefepime 2 GM VIAL IVPB SCH ×2 (00:29→13:07)
[2022-02-16] MEDS: Morphine 2 MG/ML VIAL SLOW IVP PRN ×2 (00:35→06:16)
[2022-02-16] MEDS: Acetaminophen/Codeine 30-300mg Tablet PO PRN ×4 (04:22→22:05)
[2022-02-16] MEDS: Albumin 25% 25 GM/100 ML BOT IVPB SCH (04:23)
[2022-02-16] MEDS: tiZANidine HCl 4 MG TAB PO PRN ×2 (04:23→22:05)
[2022-02-16 04:31] LABS: Anion Gap 14 mmol/L (10-20); BUN (Urea Nitrogen) 26 mg/dL (8.4-25.7); Calc. Creatinine Clearance 140 mL/min (70-130); Calcium 8.6 mg/dL (7.8-10.44); Carbon Dioxide 24 mmol/L (23-31); Chloride 107 mmol/L (98-107); Estimated GFR 70; Glucose 232 mg/dL (80-115); Potassium 4.3 mmol/L (3.5-5.1); Sodium 141 mmol/L (136-145)
[2022-02-16 05:22] LABS: Band 25 % (5-11); Lymphocytes 9 % (21-51); MDiff Complete? YES; Mean Corpuscular Hemoglobin 30.7 pg (27.0-31.0); Mean Platelet Volume 10.6 fL (7.4-10.4); Monocytes 5 % (0-10); Neutrophil 61 % (42-75); Platelet Count 206 thou/uL (130-400); White Blood Cell (WBC) Count 15.1 thou/uL (4.8-10.8)
[2022-02-16] MEDS: Amiodarone 200 MG TAB PO SCH (08:51)
[2022-02-16] MEDS: Famotidine/PF 20 mg/2ml Vial SLOW IVP SCH ×2 (08:51→19:59)
[2022-02-16] MEDS ORDERED: Iron, Sodium Ferric Gluconate 250 MG in Sodium Chloride 0.9% 250 ML 250 ML IVPB SCH (13:00)
[2022-02-16 15:21] VITALS: BMI 44.3
[2022-02-17] MEDS: Cefepime 2 GM VIAL IVPB SCH ×2 (00:15→20:03)
[2022-02-17] MEDS: Acetaminophen/Codeine 30-300mg Tablet PO PRN ×3 (01:38→10:44)
[2022-02-17] MEDS: tiZANidine HCl 4 MG TAB PO PRN ×2 (03:59→21:01)
[2022-02-17] MEDS: Morphine 2 MG/ML VIAL SLOW IVP PRN ×2 (04:01→21:56)
[2022-02-17] MEDS: hydrALAZINE 20 MG/ML VIAL SLOW IVP PRN ×2 (04:02→21:02)
[2022-02-17 06:18] LABS: Anion Gap 12 mmol/L (10-20); BUN (Urea Nitrogen) 23 mg/dL (8.4-25.7); Calc. Creatinine Clearance 166 mL/min (70-130); Calcium 8.3 mg/dL (7.8-10.44); Carbon Dioxide 27 mmol/L (23-31); Chloride 108 mmol/L (98-107); Estimated GFR 86; Glucose 146 mg/dL (80-115); Potassium 3.7 mmol/L (3.5-5.1); Sodium 143 mmol/L (136-145)
[2022-02-17 06:34] LABS: Band 10 % (5-11); Hemoglobin 7.7 g/dL (14.0-18.0); Lymphocytes 9 % (21-51); MDiff Complete? YES; Mean Corpuscular Hemoglobin 32.2 pg (27.0-31.0); Mean Corpuscular Volume 97.4 fL (78.0-98.0); Mean Platelet Volume 9.4 fL (7.4-10.4); Monocytes 4 % (0-10); Myelocyte 1 % (0-0); Neutrophil 76 % (42-75); Platelet Count 222 thou/uL (130-400); RBC Distribution Width 12.9 % (11.5-14.5); Red Blood Cell (RBC) Count 2.39 mill/uL (4.70-6.10); White Blood Cell (WBC) Count 12.1 thou/uL (4.8-10.8)
[2022-02-17] MEDS ORDERED: Furosemide 40 MG/4 ML VIAL SLOW IVP SCH (09:30)
[2022-02-17] MEDS: Iron, Sodium Ferric Gluconate 250 MG in Sodium Chloride 0.9% 250 ML 250 ML IVPB SCH (10:42)
[2022-02-17] MEDS: Amiodarone 200 MG TAB PO SCH (10:43)
[2022-02-17] MEDS: Famotidine/PF 20 mg/2ml Vial SLOW IVP SCH ×2 (10:44→21:47)
[2022-02-17] MEDS ORDERED: Acetaminophen 325 MG TAB PO PRN (14:43)
[2022-02-17] MEDS: HYDROcodone/Acetaminophen 5/325 mg Tablet PO PRN ×2 (15:10→21:00)
[2022-02-18] MEDS: HYDROcodone/Acetaminophen 5/325 mg Tablet PO PRN ×4 (01:13→19:45)
[2022-02-18 05:29] LABS: Anion Gap 13 mmol/L (10-20); BUN (Urea Nitrogen) 19 mg/dL (8.4-25.7); Calc. Creatinine Clearance 185 mL/min (70-130); Calcium 7.9 mg/dL (7.8-10.44); Carbon Dioxide 27 mmol/L (23-31); Chloride 105 mmol/L (98-107); Estimated GFR 95; Glucose 146 mg/dL (80-115); Potassium 3.6 mmol/L (3.5-5.1); Sodium 141 mmol/L (136-145)
[2022-02-18 06:35] LABS: Hemoglobin 8.7 g/dL (14.0-18.0); Mean Corpuscular Hemoglobin 30.3 pg (27.0-31.0); Mean Corpuscular Volume 94.7 fL (78.0-98.0); Mean Platelet Volume 9.4 fL (7.4-10.4); Platelet Count 224 thou/uL (130-400); RBC Distribution Width 13.9 % (11.5-14.5); Red Blood Cell (RBC) Count 2.86 mill/uL (4.70-6.10); White Blood Cell (WBC) Count 10.9 thou/uL (4.8-10.8)
[2022-02-18] MEDS: Cefepime 2 GM VIAL IVPB SCH ×2 (08:01→21:37)
[2022-02-18] MEDS: Amiodarone 200 MG TAB PO SCH (08:01)
[2022-02-18] MEDS ORDERED: Cyclobenzaprine 10 MG TAB PO PRN (08:20)
[2022-02-18] MEDS ORDERED: Atorvastatin Calcium 40 MG TAB PO SCH (09:00)
[2022-02-18] MEDS ORDERED: Aspirin 81 mg Enteric Coated Tablet PO SCH (09:00)
[2022-02-18] MEDS: Carvedilol 6.25 MG TAB PO SCH ×2 (09:37→21:00)
[2022-02-18] MEDS: Spironolactone 25 MG TAB PO SCH ×2 (09:38→21:02)
[2022-02-18] MEDS: Furosemide 40 MG TAB PO SCH (09:38)
[2022-02-18] MEDS: Aspirin 81 mg Enteric Coated Tablet PO SCH (09:38)
[2022-02-18] MEDS: Iron, Sodium Ferric Gluconate 250 MG in Sodium Chloride 0.9% 250 ML 250 ML IVPB SCH (09:39)
[2022-02-18] MEDS: Gabapentin 100 MG CAP PO SCH ×2 (09:52→21:01)
[2022-02-18] MEDS: Famotidine/PF 20 mg/2ml Vial SLOW IVP SCH (11:15)
[2022-02-18 11:42] LABS: Band 6 % (5-11); Lymphocytes 16 % (21-51); MDiff Complete? YES; Metamyelocyte 2 % (0-0); Monocytes 16 % (0-10); Myelocyte 1 % (0-0); Neutrophil 59 % (42-75); Platelet Morphology Comment Appears Adequate; Polychromasia SLIGHT = 2-3 cells (100X) (0-2/hpf)
[2022-02-18] MEDS ORDERED: Atorvastatin Calcium 20 MG TAB PO SCH (21:00)
[2022-02-18] MEDS ORDERED: TERAZOSIN HCL 10 MG PO SCH (21:00)
[2022-02-18] MEDS: Famotidine 20 MG TAB PO SCH (21:00)
[2022-02-18] MEDS ORDERED: Terazosin HCl 5 MG CAP PO SCH (21:00)
[2022-02-18] MEDS: Morphine 2 MG/ML VIAL SLOW IVP PRN (21:37)
[2022-02-19 05:21] LABS: Band 1 % (5-11); Eosinophils 1 % (0-10); Hypochromia SLIGHT = 6-15 cells (100X) (0-5/hpf); Lymphocytes 18 % (21-51); MDiff Complete? YES; Mean Corpuscular HGB CONC 30.5 g/dL (32.0-36.0); Mean Corpuscular Volume 98.4 fL (78.0-98.0); Metamyelocyte 1 % (0-0); Monocytes 13 % (0-10); Neutrophil 66 % (42-75); Platelet Count 228 thou/uL (130-400); Platelet Morphology Comment Appears Adequate; RBC Distribution Width 14.5 % (11.5-14.5); Red Blood Cell (RBC) Count 3.01 mill/uL (4.70-6.10); White Blood Cell (WBC) Count 8.8 thou/uL (4.8-10.8)
[2022-02-19] MEDS: HYDROcodone/Acetaminophen 5/325 mg Tablet PO PRN (05:44)
[2022-02-19 05:59] LABS: Anion Gap 14 mmol/L (10-20); BUN (Urea Nitrogen) 13 mg/dL (8.4-25.7); Calc. Creatinine Clearance 204 mL/min (70-130); Calcium 8.3 mg/dL (7.8-10.44); Carbon Dioxide 25 mmol/L (23-31); Chloride 103 mmol/L (98-107); Estimated GFR 98; Glucose 151 mg/dL (80-115); Potassium 3.4 mmol/L (3.5-5.1); Sodium 139 mmol/L (136-145)
[2022-02-19 08:58] VITALS: BP 151/77; TEMP 98.6
[2022-02-19] MEDS: Cefepime 2 GM VIAL IVPB SCH (09:04)
[2022-02-19] MEDS: Amiodarone 200 MG TAB PO SCH (09:05)
[2022-02-19] MEDS: Aspirin 81 mg Enteric Coated Tablet PO SCH (09:05)
[2022-02-19] MEDS: Furosemide 40 MG TAB PO SCH (09:05)
[2022-02-19] MEDS: Famotidine 20 MG TAB PO SCH (09:05)
[2022-02-19] MEDS: Gabapentin 100 MG CAP PO SCH (09:05)
[2022-02-19] MEDS: Spironolactone 25 MG TAB PO SCH (09:06)
[2022-02-19] MEDS: Carvedilol 6.25 MG TAB PO SCH (09:06)
[2022-02-19] MEDS: Iron, Sodium Ferric Gluconate 250 MG in Sodium Chloride 0.9% 250 ML 250 ML IVPB SCH (09:59)
[2022-02-19] MEDS ORDERED: Potassium Chloride 20 MEQ TAB PO SCH (10:30)
[2022-02-21 09:14] LABS: Fungus Stain Final report (.)
== END 2022-02-19 16:20 | DRG 698 ==
LOC: ERS 18:59 → ERHOLD 22:52 → CCU 02-14 03:15 → IMCU/EMU 02-14 20:13 → MSONC 02-16 14:36
PROVIDERS: ADMIT Internal Medicine; ATTEND Internal Medicine
PROC: 3E03329 Introduction of Other Anti-infective into Peripheral Vein, Percutaneous Approach (ICD-10-PCS; principal; 2022-02-13)
PROC: 3E033XZ Introduction of Vasopressor into Peripheral Vein, Percutaneous Approach (ICD-10-PCS; 2022-02-13)
PROC: 0J970ZZ Drainage of Back Subcutaneous Tissue and Fascia, Open Approach (ICD-10-PCS; 2022-02-15)
PROC: 30233N1 Transfusion of Nonautologous Red Blood Cells into Peripheral Vein, Percutaneous Approach (ICD-10-PCS; 2022-02-17)
DX: T83.511A Infection and inflammatory reaction due to indwelling urethral catheter, initial encounter (principal); A41.52 Sepsis due to Pseudomonas; Z20.822 Contact with and (suspected) exposure to COVID-19; G93.41 Metabolic encephalopathy; R65.21 Severe sepsis with septic shock; R57.8 Other shock; I50.32 Chronic diastolic (congestive) heart failure; E87.1 Hypo-osmolality and hyponatremia; N17.9 Acute kidney failure, unspecified; D62 Acute posthemorrhagic anemia; Z68.41 Body mass index [BMI] 40.0-44.9, adult; M46.26 Osteomyelitis of vertebra, lumbar region; N39.0 Urinary tract infection, site not specified; R33.9 Retention of urine, unspecified; E11.9 Type 2 diabetes mellitus without complications; Z96.652 Presence of left artificial knee joint; E66.01 Morbid (severe) obesity due to excess calories; Z96.641 Presence of right artificial hip joint; I48.0 Paroxysmal atrial fibrillation; E78.00 Pure hypercholesterolemia, unspecified; G51.0 Bell's palsy; E86.9 Volume depletion, unspecified; T50.1X5A Adverse effect of loop [high-ceiling] diuretics, initial encounter; T46.4X5A Adverse effect of angiotensin-converting-enzyme inhibitors, initial encounter; R15.9 Full incontinence of feces; I87.2 Venous insufficiency (chronic) (peripheral); E88.09 Other disorders of plasma-protein metabolism, not elsewhere classified; I25.10 Atherosclerotic heart disease of native coronary artery without angina pectoris; Y84.6 Urinary catheterization as the cause of abnormal reaction of the patient, or of later complication, without mention of misadventure at the time of the procedure; Z95.0 Presence of cardiac pacemaker; Z88.8 Allergy status to other drugs, medicaments and biological substances; Z79.01 Long term (current) use of anticoagulants; Z79.899 Other long term (current) drug therapy; Z79.84 Long term (current) use of oral hypoglycemic drugs; Z79.82 Long term (current) use of aspirin; Z90.89 Acquired absence of other organs; Z87.891 Personal history of nicotine dependence
CPT/HCPCS: 36415; 36416; 36430; 71045; 71250; 74177; 80048; 80053; 80202; 81003; 81015; 82553; 82570; 82728; 83540; 83550; 83605; 83880; 84145; 84156; 84300; 84484; 84540; 85025; 86850; 86900; 86901; 87040; 87070; 87077; 87086; 87102; 87149; 87186; 87205; 87206; 93005; 94640; 94760; 96365; 96375; J0360; J0692; J1100; J1170; J1644; J1815; J1940; J1956; J2250; J2270; J2405; J2543; J2704; J2916; J3370; J3490; J7050; J7120; J7620; P9016; P9047; S0028

== ENCOUNTER 2023-06-09 16:25 | Emergency (ER) | payer MEDICARE ==
[2023-06-09 17:20] LABS: #Eosinphils 0.2 thou/uL (0.0-0.7); #Monocytes 1.1 thou/uL (0.11-0.59); %Basophils 0.3 % (0.0-1.0); %Eosinophils 2.6 % (0.0-10.0); %Lymphocytes 18.9 % (21.0-51.0); %Monocytes 16.5 % (0.0-10.0); %Neutrophils 60.9 % (42.0-75.0); Hematocrit 39.2 % (42.0-52.0); Hemoglobin 12.4 g/dL (14.0-18.0); Mean Corpuscular HGB CONC 31.6 g/dL (32.0-36.0); Mean Corpuscular Hemoglobin 30.4 pg (27.0-31.0); Mean Corpuscular Volume 96.1 fl (78.0-98.0); Mean Platelet Volume 11.4 fL (7.4-10.4); Platelet Count 170 10x3/uL (130-400); RBC Distribution Width 15.4 % (11.5-14.5); Red Blood Cell (RBC) Count 4.08 mill/uL (4.70-6.10); White Blood Cell (WBC) Count 6.6 10x3/uL (4.8-10.8)
[2023-06-09 17:32] LABS: Bacteria/HPF None Seen HPF (None Seen); Bilirubin Negative (Negative); Blood, Urine 2+ (Negative); CAUTI Indications for Culture Dysuria,urgency,freq; Clarity Clear (Clear); Glucose, Urine (Dipstick) Greater than 1000 mg/dL (Negative); Ketone, Urine Negative (Negative); Leukocyte Negative Leu/uL (Negative); Nitrite Negative (Negative); Protein, Urine (Dipstick) Negative (Neg-Trace); RBC/HPF 0-3 HPF (0-3); Specific Gravity, Urine 1.022 (1.002-1.036); Squamous Epithelial None Seen HPF (0-3); Urobilinogen Normal mg/dL (Less than 2); WBC/HPF 0-3 HPF (0-3)
[2023-06-09 17:33] LABS: Urine Culture Reflex No No
[2023-06-09 17:46] LABS: ALT (SGPT) 30 U/L (8-55); AST (SGOT) 18 U/L (5-34); Albumin 4.2 g/dL (3.4-4.8); Alkaline Phosphatase 47 U/L (40-110); Anion Gap 13 mmol/L (10-20); BUN (Urea Nitrogen) 32 mg/dL (8.4-25.7); Bilirubin, Total 0.3 mg/dL (0.2-1.2); Calc. Creatinine Clearance 0 mL/min (70-130); Calcium 9.1 mg/dL (7.8-10.44); Carbon Dioxide 21 mmol/L (23-31); Chloride 102 mmol/L (98-107); Estimated GFR 49; Globulin 2.9 g/dL (2.4-3.5); Glucose 171 mg/dL (80-115); Potassium 4.2 mmol/L (3.5-5.1); Protein, Total 7.1 g/dL (5.8-8.1); Sodium 132 mmol/L (136-145)
== END 2023-06-09 18:17 | disposition home or self-care (01) ==
LOC: ERS 16:25
DX: L03.116 Cellulitis of left lower limb (principal); R10.9 Unspecified abdominal pain; E11.9 Type 2 diabetes mellitus without complications; E78.00 Pure hypercholesterolemia, unspecified; I11.0 Hypertensive heart disease with heart failure; I50.9 Heart failure, unspecified; Z87.891 Personal history of nicotine dependence
CPT/HCPCS: 74176; 80053; 81001; 85025

== ENCOUNTER 2023-07-11 14:04 | Outpatient (CLI) | payer MEDICARE ==
[2023-07-11 14:51] LABS: #Eosinphils 0.2 10x3/uL (0.0-0.5); #Monocytes 1.3 10x3/uL (0.0-1.1); #Neutrophils 5.7 10x3/uL (1.5-8.4); %Basophils 0.3 % (0.0-2.0); %Eosinophils 2.4 % (0.0-6.0); %Lymphocytes 19.7 % (18.0-47.0); %Monocytes 13.7 % (0.0-10.0); Hematocrit 41.6 % (38.8-50.0); Hemoglobin 13.2 g/dL (13.5-17.5); Mean Corpuscular HGB CONC 31.7 g/dL (32.0-36.0); Mean Corpuscular Hemoglobin 30.2 pg (27.0-33.0); Mean Corpuscular Volume 95.2 fl (81.2-95.1); Mean Platelet Volume 11.4 fl (7.4-10.4); Platelet Count 153 10x3/uL (150-450); Red Blood Cell (RBC) Count 4.37 10x6/uL (4.32-5.72); White Blood Cell (WBC) Count 9.1 10x3/uL (3.5-10.5)
[2023-07-11 15:25] LABS: ALT (SGPT) 26 U/L (8-55); AST (SGOT) 21 U/L (5-34); Albumin 4.4 g/dL (3.4-4.8); Alkaline Phosphatase 47 U/L (40-110); Anion Gap 17 mmol/L (10-20); BUN (Urea Nitrogen) 33 mg/dL (8.4-25.7); Bilirubin, Total 0.7 mg/dL (0.2-1.2); Calc. Creatinine Clearance 0 mL/min (70-130); Calcium 9.3 mg/dL (7.8-10.44); Carbon Dioxide 25 mmol/L (23-31); Chloride 102 mmol/L (98-107); Estimated GFR 43; Globulin 2.9 g/dL (2.4-3.5); Glucose 107 mg/dL (80-115); Potassium 4.6 mmol/L (3.5-5.1); Protein, Total 7.3 g/dL (5.8-8.1); Sodium 139 mmol/L (136-145)
== END 2023-07-11 14:05 | disposition home or self-care (01) ==
LOC: LABBT 14:04
PROVIDERS: ATTEND Internal Medicine Cardiovascular Disease
DX: Z01.812 Encounter for preprocedural laboratory examination (principal)
CPT/HCPCS: 80053; 85025

== ENCOUNTER 2023-07-13 06:21 | Day surgery (SDC) | payer MEDICARE ==
[2023-07-11 14:43] VITALS: BMI 43.6
[2023-07-13] MEDS ORDERED: fentaNYL 50 mcg/mL 1 mL Vial ONE (06:28)
[2023-07-13] MEDS ORDERED: Nitroglycerin 50 MG/250 ML BOT 0 ML ONE (06:29)
[2023-07-13] MEDS ORDERED: Lidocaine 1% (PF) 30 ML VIAL ONE (06:29)
[2023-07-13] MEDS ORDERED: Heparin 10,000 UNITS/ 10 ML VIAL ONE (06:29)
[2023-07-13] MEDS ORDERED: Midazolam HCl 2 mg/2 ml Vial ONE (06:29)
[2023-07-13] MEDS ORDERED: Protamine Sulfate 50 MG/5 ML VIAL ONE (08:04)
[2023-07-13] MEDS ORDERED: Acetaminophen/Codeine 30-300mg Tablet ONE (11:18)
[2023-07-13] MEDS ORDERED: Iopamidol 370 76% 100 ML VIAL ONE (13:20)
== END 2023-07-13 16:00 | disposition home or self-care (01) ==
LOC: SDC 06:21
PROVIDERS: ATTEND Internal Medicine Cardiovascular Disease
PROC: 4A023N7 Measurement of Cardiac Sampling and Pressure, Left Heart, Percutaneous Approach (ICD-10-PCS; principal; 2023-07-13)
PROC: B205YZZ Plain Radiography of Left Heart using Other Contrast (ICD-10-PCS; 2023-07-13)
DX: Z01.810 Encounter for preprocedural cardiovascular examination (principal); I42.8 Other cardiomyopathies; I11.0 Hypertensive heart disease with heart failure; I50.32 Chronic diastolic (congestive) heart failure; N17.9 Acute kidney failure, unspecified; I48.0 Paroxysmal atrial fibrillation; E78.00 Pure hypercholesterolemia, unspecified; E11.9 Type 2 diabetes mellitus without complications; I87.2 Venous insufficiency (chronic) (peripheral); F17.200 Nicotine dependence, unspecified, uncomplicated; F15.90 Other stimulant use, unspecified, uncomplicated; E66.01 Morbid (severe) obesity due to excess calories; R94.39 Abnormal result of other cardiovascular function study; Z95.0 Presence of cardiac pacemaker; Z96.641 Presence of right artificial hip joint; Z96.652 Presence of left artificial knee joint; Z90.89 Acquired absence of other organs; Z68.41 Body mass index [BMI] 40.0-44.9, adult; Z79.01 Long term (current) use of anticoagulants; Z79.82 Long term (current) use of aspirin; Z79.84 Long term (current) use of oral hypoglycemic drugs; Z79.899 Other long term (current) drug therapy
CPT/HCPCS: 85347; 93452; C1769 ×2; J3010; 99152; 99153; J1644; J2001; J2250; J2720; Q9967

== ENCOUNTER 2023-07-29 09:57 | Day surgery (SDC) | payer MEDICARE ==
[2023-07-27 08:46] VITALS: BMI 43.6
[2023-07-27 09:26] LABS: Hematocrit 41.5 % (38.8-50.0); Hemoglobin 13.1 g/dL (13.5-17.5); Mean Corpuscular HGB CONC 31.6 g/dL (32.0-36.0); Mean Corpuscular Volume 95.2 fl (81.2-95.1); Mean Platelet Volume 11.2 fl (7.4-10.4); Platelet Count 180 10x3/uL (150-450); RBC Distribution Width 14.7 % (11.5-14.5); Red Blood Cell (RBC) Count 4.36 10x6/uL (4.32-5.72); White Blood Cell (WBC) Count 7.5 10x3/uL (3.5-10.5)
[2023-07-27 10:06] LABS: INR-International Normal Ratio 1.2; PTT 38.2 sec (22.0-33.0); Prothrombin Time 12.6 sec (9.5-12.1)
[2023-07-27 10:17] LABS: Anion Gap 16 mmol/L (10-20); BUN (Urea Nitrogen) 28 mg/dL (8.4-25.7); Calc. Creatinine Clearance 105 mL/min (70-130); Calcium 9.7 mg/dL (7.8-10.44); Carbon Dioxide 27 mmol/L (23-31); Chloride 101 mmol/L (98-107); Estimated GFR 51; Glucose 130 mg/dL (80-115); Potassium 4.2 mmol/L (3.5-5.1); Sodium 140 mmol/L (136-145)
[2023-07-29] MEDS ORDERED: CEFAZOLIN 2 GM VIAL ONE (10:25)
[2023-07-29] MEDS ORDERED: Gentamicin 80 MG/2 ML VIAL ONE (10:25)
[2023-07-29] MEDS ORDERED: Lidocaine 1% (PF) 30 ML VIAL ONE (10:25)
[2023-07-29] MEDS ORDERED: fentaNYL 50 mcg/mL 1 mL Vial ONE ×3 (10:53→14:44)
[2023-07-29] MEDS ORDERED: Ketamine In 0.9 % NaCl 50 MG/5 ML SYRINGE ONE (10:54)
[2023-07-29] MEDS ORDERED: Vasopressin 20 UNITS/ML VIAL ONE (10:54)
[2023-07-29] MEDS ORDERED: Lidocaine 1% PF 5 ML VIAL ONE (11:25)
[2023-07-29] MEDS ORDERED: Ondansetron PF 4 MG/2 ML Vial ONE (11:25)
[2023-07-29] MEDS ORDERED: Succinylcholine 200 MG/10 ml SYRINGE FS ONE (11:25)
[2023-07-29] MEDS ORDERED: PROPOFOL 200 MG/20 ML VIAL ONE (11:25)
[2023-07-29] MEDS ORDERED: Dexamethasone 20 MG/5 ML VIAL ONE (11:25)
[2023-07-29] MEDS ORDERED: Iopamidol 370 76% 100 ML VIAL ONE (11:26)
[2023-07-29] MEDS ORDERED: fentaNYL PF 100 MCG/2 ML SYRINGE ONE (13:56)
[2023-07-29] MEDS ORDERED: HYDROcodone/Acetaminophen 5/325 mg Tablet ONE (16:26)
== END 2023-07-29 17:05 | disposition home or self-care (01) ==
LOC: SDC 09:57
PROVIDERS: ATTEND Internal Medicine Cardiovascular Disease
PROC: 0JPT0PZ Removal of Cardiac Rhythm Related Device from Trunk Subcutaneous Tissue and Fascia, Open Approach (ICD-10-PCS; principal; 2023-07-29)
PROC: 0JH606Z Insertion of Pacemaker, Dual Chamber into Chest Subcutaneous Tissue and Fascia, Open Approach (ICD-10-PCS; 2023-07-29)
DX: I48.0 Paroxysmal atrial fibrillation (principal); I42.8 Other cardiomyopathies; I13.0 Hypertensive heart and chronic kidney disease with heart failure and stage 1 through stage 4 chronic kidney disease, or unspecified chronic kidney disease; E11.22 Type 2 diabetes mellitus with diabetic chronic kidney disease; I50.9 Heart failure, unspecified; N18.9 Chronic kidney disease, unspecified; E78.5 Hyperlipidemia, unspecified; E66.01 Morbid (severe) obesity due to excess calories; F10.21 Alcohol dependence, in remission; Z68.41 Body mass index [BMI] 40.0-44.9, adult; Z95.0 Presence of cardiac pacemaker; Z96.659 Presence of unspecified artificial knee joint; Z90.89 Acquired absence of other organs; Z87.891 Personal history of nicotine dependence; Z79.84 Long term (current) use of oral hypoglycemic drugs; Z79.01 Long term (current) use of anticoagulants; Z79.899 Other long term (current) drug therapy
CPT/HCPCS: 33225; 33229; 71045; 80048; 85027; 85610; 85730; C1725; C1769 ×2; C1900; C2621; J3010; J1100; J1580; J2001; J2405; J2704; J3490; Q9967

== ENCOUNTER 2023-09-05 08:31 | Day surgery (SDC) | payer MEDICARE ==
[2023-09-02 08:33] VITALS: BMI 45.3
[2023-09-02 09:31] LABS: Hemoglobin 13.3 g/dL (13.5-17.5); Mean Corpuscular HGB CONC 32.4 g/dL (32.0-36.0); Mean Corpuscular Hemoglobin 30.9 pg (27.0-33.0); Mean Corpuscular Volume 95.1 fl (81.2-95.1); Mean Platelet Volume 11.6 fl (7.4-10.4); Platelet Count 154 10x3/uL (150-450); RBC Distribution Width 13.9 % (11.5-14.5); Red Blood Cell (RBC) Count 4.31 10x6/uL (4.32-5.72); White Blood Cell (WBC) Count 5.9 10x3/uL (3.5-10.5)
[2023-09-02 09:43] LABS: INR-International Normal Ratio 1.2; Prothrombin Time 12.7 sec (9.5-12.1)
[2023-09-02 10:04] LABS: Anion Gap 14 mmol/L (10-20); BUN (Urea Nitrogen) 23 mg/dL (8.4-25.7); Calc. Creatinine Clearance 123 mL/min (70-130); Calcium 9.3 mg/dL (7.8-10.44); Carbon Dioxide 27 mmol/L (23-31); Chloride 102 mmol/L (98-107); Estimated GFR 59; Glucose 194 mg/dL (80-115); Potassium 3.9 mmol/L (3.5-5.1); Sodium 139 mmol/L (136-145)
[2023-09-05] MEDS ORDERED: PROPOFOL 200 MG/20 ML VIAL ONE (11:32)
== END 2023-09-05 12:24 | disposition home or self-care (01) ==
LOC: SDC 08:31
PROVIDERS: ATTEND Internal Medicine Cardiovascular Disease
PROC: 5A2204Z Restoration of Cardiac Rhythm, Single (ICD-10-PCS; principal; 2023-09-05)
DX: I13.0 Hypertensive heart and chronic kidney disease with heart failure and stage 1 through stage 4 chronic kidney disease, or unspecified chronic kidney disease (principal); I50.22 Chronic systolic (congestive) heart failure; I42.8 Other cardiomyopathies; I48.0 Paroxysmal atrial fibrillation; E11.22 Type 2 diabetes mellitus with diabetic chronic kidney disease; N18.9 Chronic kidney disease, unspecified; E78.5 Hyperlipidemia, unspecified; E66.01 Morbid (severe) obesity due to excess calories; Z95.0 Presence of cardiac pacemaker; Z68.41 Body mass index [BMI] 40.0-44.9, adult; Z79.899 Other long term (current) drug therapy; Z79.01 Long term (current) use of anticoagulants; Z79.84 Long term (current) use of oral hypoglycemic drugs; Z87.891 Personal history of nicotine dependence; Z98.890 Other specified postprocedural states; Z88.8 Allergy status to other drugs, medicaments and biological substances
CPT/HCPCS: 80048; 85027; 85610; 85730; 92960; 93005; 93010; J2704

== ENCOUNTER 2024-09-22 13:33 | Emergency (ER) | payer MEDICARE ==
[2024-09-22 14:12] LABS: #Basophils 0.03 10x3/uL (0.0-0.2); %Basophils 0.3 % (0.0-1.0); %Monocytes 9.3 % (0.0-10.0); %Neutrophils 72.6 % (42.0-75.0); Hematocrit 40.7 % (42.0-52.0); Hemoglobin 12.8 g/dL (14.0-18.0); Mean Corpuscular HGB CONC 31.4 g/dL (32.0-36.0); Mean Corpuscular Volume 95.3 fL (78.0-98.0); Mean Platelet Volume 11.1 fL (7.4-10.4); Platelet Count 198 10x3/uL (130-400); RBC Distribution Width 14.2 % (11.5-14.5); Red Blood Cell (RBC) Count 4.27 mill/uL (4.70-6.10)
[2024-09-22 14:28] LABS: PTT 46.1 sec (22.9-36.1)
[2024-09-22 14:32] LABS: ALT (SGPT) 15 U/L (Less than 45); AST (SGOT) 20 U/L (11-34); Albumin 3.7 g/dL (3.1-4.5); Alkaline Phosphatase 61 U/L (40-110); Anion Gap 15 mmol/L (10-20); BUN (Urea Nitrogen) 22 mg/dL (8.4-25.7); Bilirubin, Total 0.4 mg/dL (0.3-1.2); Calc. Creatinine Clearance 0 mL/min (70-130); Calcium 9.5 mg/dL (7.8-10.44); Carbon Dioxide 25 mmol/L (23-31); Chloride 107 mmol/L (98-107); Estimated GFR 69; Globulin 3.8 g/dL (2.4-3.5); Glucose 147 mg/dL (80-115); Potassium 4.3 mmol/L (3.5-5.1); Protein, Total 7.5 g/dL (5.8-8.1); Sodium 143 mmol/L (136-145)
[2024-09-22 14:35] LABS: Troponin I 0.018 ng/mL (< 0.028)
[2024-09-22 14:41] LABS: INR-International Normal Ratio 1.7; Prothrombin Time 19.6 sec (12.0-14.7)
[2024-09-22] MEDS ORDERED: Clindamycin/D5W 600 mg/50 ml Premix Bag ONE (16:24)
[2024-09-22] MEDS ORDERED: Clindamycin/D5W 900 MG in Premix 1 BAG IVPB SCH (16:30)
== END 2024-09-22 16:48 | disposition home or self-care (01) ==
LOC: ERS 13:33
DX: L03.116 Cellulitis of left lower limb (principal); E11.9 Type 2 diabetes mellitus without complications; I11.0 Hypertensive heart disease with heart failure; I50.9 Heart failure, unspecified; E78.5 Hyperlipidemia, unspecified; Z87.891 Personal history of nicotine dependence; Z79.01 Long term (current) use of anticoagulants; Z79.899 Other long term (current) drug therapy
CPT/HCPCS: 71045; 80053; 83605; 84484; 85025; 85610; 85730; 87040; 93005; 94760; J3490 ×2; 36415; 96365

== ENCOUNTER 2025-04-16 12:10 | Inpatient (IN) | payer MEDICARE ==
[2025-04-16] MEDS ORDERED: Lidocaine 1% w/Epinephrine 1:100K 20 ML VIAL ONE (14:49)
[2025-04-16 15:18] LABS: #Basophils 0.03 10x3/uL (0.0-0.2); #Eosinophils Less than 0.03 10x3/uL (0.0-0.7); #Monocytes 2.53 10x3/uL (0.11-0.59); #Neutrophils 14.97 10x3/uL (1.40-6.50); %Basophils 0.2 % (0.0-1.0); %Eosinophils 0.1 % (0.0-10.0); %Lymphocytes 5.9 % (21.0-51.0); %Monocytes 13.5 % (0.0-10.0); %Neutrophils 79.6 % (42.0-75.0); Hematocrit 41.6 % (42.0-52.0); Hemoglobin 13.2 g/dL (14.0-18.0); Mean Corpuscular Hemoglobin 29.9 pg (27.0-31.0); Mean Corpuscular Volume 94.3 fL (78.0-98.0); Platelet Count 162 10x3/uL (130-400); Red Blood Cell (RBC) Count 4.41 mill/uL (4.70-6.10); White Blood Cell (WBC) Count 18.79 10x3/uL (4.8-10.8)
[2025-04-16 15:41] LABS: ALT (SGPT) 7 U/L (Less than 45); AST (SGOT) 10 U/L (11-34); Albumin 3.4 g/dL (3.1-4.5); Alkaline Phosphatase 67 U/L (40-110); Anion Gap 15 mmol/L (10-20); BUN (Urea Nitrogen) 29 mg/dL (8.4-25.7); Bilirubin, Total 0.7 mg/dL (0.3-1.2); Calc. Creatinine Clearance 0 mL/min (70-130); Calcium 9.4 mg/dL (7.8-10.44); Carbon Dioxide 22 mmol/L (23-31); Chloride 103 mmol/L (98-107); Globulin 3.5 g/dL (2.4-3.5); Glucose 201 mg/dL (80-115); Potassium 4.3 mmol/L (3.5-5.1); Sodium 136 mmol/L (136-145)
[2025-04-16] MEDS ORDERED: Clindamycin/D5W 900 MG in Premix 1 BAG IVPB SCH (15:45)
[2025-04-16] MEDS ORDERED: Cefepime 2 GM VIAL ONE (15:48)
[2025-04-16] MEDS ORDERED: Ondansetron PF 4 MG/2 ML Vial IVP PRN (15:56)
[2025-04-16] MEDS ORDERED: Melatonin 3 MG TAB PO PRN (15:56)
[2025-04-16 17:29] VITALS: BMI 42.0
[2025-04-16] MEDS ORDERED: Dextrose 50% Abboject 50 ML SYRINGE SLOW IVP PRN (18:16)
[2025-04-16] MEDS ORDERED: Glucagon 1 MG/ML KIT IM PRN (18:16)
[2025-04-16] MEDS: Clindamycin/D5W 900 MG in Premix 1 BAG IVPB SCH (18:25)
[2025-04-16] MEDS: Vancomycin (BATCH) 2.5 GM in Premix 1 BAG IVPB SCH (18:26)
[2025-04-16] MEDS: Communication Order-Pharmacy FS ONE (20:41)
[2025-04-16] MEDS ORDERED: Vancomycin 1 GM in Sodium Chloride 0.9% 250 ML 300 ML IVPB SCH (21:00)
[2025-04-16] MEDS: Famotidine/PF 20 mg/2ml Vial SLOW IVP SCH (21:39)
[2025-04-16] MEDS: Famotidine 20 MG TAB PO SCH (22:15)
[2025-04-16] MEDS ORDERED: Vancomycin 1.5 GM / NS 500ML VIAL-2-BAG IVPB SCH (23:00)
[2025-04-17 05:02] LABS: #Basophils 0.05 10x3/uL (0.0-0.2); #Eosinophils 0.06 10x3/uL (0.0-0.7); #Monocytes 2.14 10x3/uL (0.11-0.59); #Neutrophils 11.36 10x3/uL (1.40-6.50); %Basophils 0.3 % (0.0-1.0); %Eosinophils 0.4 % (0.0-10.0); %Lymphocytes 8.0 % (21.0-51.0); %Monocytes 14.3 % (0.0-10.0); %Neutrophils 76.3 % (42.0-75.0); Hematocrit 39.0 % (42.0-52.0); Hemoglobin 12.4 g/dL (14.0-18.0); Mean Corpuscular Hemoglobin 30.0 pg (27.0-31.0); Mean Corpuscular Volume 94.4 fL (78.0-98.0); Platelet Count 144 10x3/uL (130-400); Red Blood Cell (RBC) Count 4.13 mill/uL (4.70-6.10); White Blood Cell (WBC) Count 14.92 10x3/uL (4.8-10.8)
[2025-04-17 05:17] LABS: Vancomycin, Random 14.5 ug/mL (See Comment)
[2025-04-17 05:20] LABS: ALT (SGPT) 8 U/L (Less than 45); AST (SGOT) 11 U/L (11-34); Albumin 2.8 g/dL (3.1-4.5); Alkaline Phosphatase 58 U/L (40-110); Anion Gap 15 mmol/L (10-20); BUN (Urea Nitrogen) 22 mg/dL (8.4-25.7); Bilirubin, Total 0.5 mg/dL (0.3-1.2); Calc. Creatinine Clearance 124 mL/min (70-130); Calcium 8.8 mg/dL (7.8-10.44); Carbon Dioxide 20 mmol/L (23-31); Chloride 106 mmol/L (98-107); Globulin 3.5 g/dL (2.4-3.5); Glucose 158 mg/dL (80-115); Potassium 3.9 mmol/L (3.5-5.1); Sodium 137 mmol/L (136-145)
[2025-04-17] MEDS: Vancomycin 1.5 GM / NS 500ML VIAL-2-BAG IVPB SCH (06:00)
[2025-04-17] MEDS: HYDROcodone/Acetaminophen 10/325 mg Tablet PO SCH (12:24)
[2025-04-17] MEDS: Amiodarone 200 MG TAB PO SCH (12:24)
[2025-04-17] MEDS: Primidone 50 MG TAB PO SCH (15:48)
[2025-04-17] MEDS: Carvedilol 6.25 MG TAB PO SCH (20:52)
[2025-04-18 06:10] LABS: #Basophils 0.04 10x3/uL (0.0-0.2); #Eosinophils 0.17 10x3/uL (0.0-0.7); #Monocytes 1.45 10x3/uL (0.11-0.59); #Neutrophils 7.83 10x3/uL (1.40-6.50); %Basophils 0.4 % (0.0-1.0); %Eosinophils 1.6 % (0.0-10.0); %Lymphocytes 7.1 % (21.0-51.0); %Monocytes 14.1 % (0.0-10.0); %Neutrophils 75.9 % (42.0-75.0); Hematocrit 38.2 % (42.0-52.0); Hemoglobin 12.0 g/dL (14.0-18.0); Mean Corpuscular Hemoglobin 29.9 pg (27.0-31.0); Mean Corpuscular Volume 95.0 fL (78.0-98.0); Platelet Count 145 10x3/uL (130-400); Red Blood Cell (RBC) Count 4.02 mill/uL (4.70-6.10); White Blood Cell (WBC) Count 10.31 10x3/uL (4.8-10.8)
[2025-04-18 06:36] LABS: Anion Gap 10 mmol/L (10-20); BUN (Urea Nitrogen) 20 mg/dL (8.4-25.7); Calc. Creatinine Clearance 157 mL/min (70-130); Calcium 9.0 mg/dL (7.8-10.44); Carbon Dioxide 23 mmol/L (23-31); Chloride 105 mmol/L (98-107); Glucose 163 mg/dL (80-115); Potassium 4.1 mmol/L (3.5-5.1); Sodium 134 mmol/L (136-145)
[2025-04-18 14:44] VITALS: BMI 42.0
[2025-04-18] MEDS: Vancomycin 1 GM in Premix 1 BAG IVPB SCH (21:05)
[2025-04-19 06:55] LABS: Hematocrit 40.1 % (42.0-52.0); Hemoglobin 12.9 g/dL (14.0-18.0); Mean Corpuscular Hemoglobin 30.3 pg (27.0-31.0); Mean Corpuscular Volume 94.1 fL (78.0-98.0); Platelet Count 173 10x3/uL (130-400); Red Blood Cell (RBC) Count 4.26 mill/uL (4.70-6.10); White Blood Cell (WBC) Count 6.56 10x3/uL (4.8-10.8)
[2025-04-19 07:36] LABS: Burr Cells SLIGHT = 2-5 cells HPF (0-1); Macrocytosis SLIGHT = 6-15 cells HPF (0-5); Platelet Adequacy Comment Platelets Normal; Polychromasia SLIGHT = 2-3 cells HPF (0-2); Smudge Cells 19.6 %
[2025-04-19 08:13] LABS: Vancomycin, Random 15.6 ug/mL (See Comment)
[2025-04-19 08:35] LABS: Anion Gap 12 mmol/L (10-20); BUN (Urea Nitrogen) 16 mg/dL (8.4-25.7); Calc. Creatinine Clearance 157 mL/min (70-130); Calcium 9.2 mg/dL (7.8-10.44); Carbon Dioxide 24 mmol/L (23-31); Chloride 103 mmol/L (98-107); Glucose 185 mg/dL (80-115); Potassium 4.3 mmol/L (3.5-5.1); Sodium 135 mmol/L (136-145)
[2025-04-19] MEDS: Dapagliflozin Propanediol 10 MG TAB PO SCH (09:16)
[2025-04-20 05:47] LABS: Hematocrit 40.5 % (42.0-52.0); Hemoglobin 12.9 g/dL (14.0-18.0); Mean Corpuscular Hemoglobin 30.0 pg (27.0-31.0); Mean Corpuscular Volume 94.2 fL (78.0-98.0); Platelet Count 162 10x3/uL (130-400); Red Blood Cell (RBC) Count 4.30 mill/uL (4.70-6.10); White Blood Cell (WBC) Count 6.96 10x3/uL (4.8-10.8)
[2025-04-20] MEDS: Acetaminophen 325 MG TAB PO PRN (05:51)
[2025-04-20 06:06] LABS: Platelet Adequacy Comment Platelets Normal; RBC Morphology Within Normal Limits; Smudge Cells 16.8 %
[2025-04-20 06:17] LABS: Anion Gap 16 mmol/L (10-20); BUN (Urea Nitrogen) 20 mg/dL (8.4-25.7); Calc. Creatinine Clearance 132 mL/min (70-130); Calcium 8.8 mg/dL (7.8-10.44); Carbon Dioxide 24 mmol/L (23-31); Chloride 99 mmol/L (98-107); Glucose 174 mg/dL (80-115); Potassium 3.9 mmol/L (3.5-5.1); Sodium 135 mmol/L (136-145)
[2025-04-21] MEDS: Guaifenesin DM 100-10/5 ML UDCUP PO PRN (09:28)
[2025-04-24] MEDS: HYDROcodone/Acetaminophen 10/325 mg Tablet PO PRN (15:25)
[2025-04-25 15:59] VITALS: BP 144/79; TEMP 97.6
[2025-04-25] MEDS ORDERED: metFORMIN 500 MG TAB PO SCH (17:00)
[2025-04-25] MEDS ORDERED: Apixaban 5 MG TAB PO SCH (21:00)
== END 2025-04-25 17:40 | disposition home health service (06) | DRG 872 ==
LOC: ERS 12:10 → OBSVTOIN 16:00 → T4-B 16:00
PROVIDERS: ADMIT Family Medicine; ATTEND Internal Medicine
DX: A41.9 Sepsis, unspecified organism (principal); Z68.41 Body mass index [BMI] 40.0-44.9, adult; E11.9 Type 2 diabetes mellitus without complications; I10 Essential (primary) hypertension; E78.00 Pure hypercholesterolemia, unspecified; G51.0 Bell's palsy; E66.01 Morbid (severe) obesity due to excess calories; Z96.652 Presence of left artificial knee joint; N61.1 Abscess of the breast and nipple; N61.0 Mastitis without abscess; I48.0 Paroxysmal atrial fibrillation; R56.9 Unspecified convulsions; Z88.8 Allergy status to other drugs, medicaments and biological substances; Z98.890 Other specified postprocedural states; Z95.0 Presence of cardiac pacemaker; Z87.891 Personal history of nicotine dependence; Z79.899 Other long term (current) drug therapy
CPT/HCPCS: 10060; 36415; 36416; 74176; 80048; 80053; 80202; 83036; 83605; 85025; 86141; 87040; 87070; 87077; 87081; 87205; 96365; 96367; 96375; 97139; J0692; J1815; J2270; J3373; J3490; J7030